=== PATIENT | female | born 1985 | race Caucasian/White ===

== ENCOUNTER 2016-09-12 16:08 | Emergency (ER) | payer OTHER ==
[2016-09-12 16:21] VITALS: BMI 36.2
--- NOTE | 2016-09-12 16:48 | PDOC ---
History of Present Illness - History of Present Illness Initial Comments: 09/12/16 17:02 The patient is a 31 year old female with no significant past medical hx who presents to the ED complaining of vaginal bleeding since today. She reports she went to the bathroom and noticed blood in her urine. She then noticed blood on the tissue when she wiped. The patient reports her LMP was 08/01. The patient reports she goes to [facility] and saw an HEAD OF ETHICS AND COMPLIANCE for this . The patient denies a copious amount of blood. The patient denies fever, chills, dysuria The patient denies nausea, vomiting, diarrhea, abdominal pain or cramping Surgical hx: None Allergies: NKDA <Ria Ramirez - Last Filed: 09/12/16 19:47> <Rochelle Curry - Last Filed: 09/12/16 20:06> - General Chief Complaint: Vaginal Bleeding Stated Complaint: 6WKS/VAGINAL BLEEDING Time Seen by Provider: 09/12/16 16:37 Past History <Ria Ramirez - Last Filed: 09/12/16 19:47> - Past Medical History Other medical history: denies - Psycho/Social/Smoking Cessation Hx Anxiety: No Suicidal Ideation: No Smoking History: Never smoked Have you smoked in the past 12 months: No Information on smoking cessation initiated: No Hx Alcohol Use: No Drug/Substance Use Hx: No Substance Use Type: None <Rochelle Curry - Last Filed: 09/12/16 20:06> - Past Medical History Allergies/Adverse Reactions: Allergies Allergy/AdvReac Type Severity Reaction Status Date / Time No Known Allergies Allergy Verified 09/12/16 16:18 Home Medications: Ambulatory Orders Cephalexin Monohydrate [Keflex -] 500 mg PO Q6H #20 capsule 09/12/16 Vits #93/Iron Fum/FA [ Formula Tablet] 1 each PO DAILY Review of Systems - Review of Systems Able to Perform ROS?: Yes Comments:: 09/12/16 17:02 CONSTITUTIONAL: Absent: fever, chills, diaphoresis, generalized weakness, malaise, loss of appetite HEENT: Absent: rhinorrhea, nasal congestion, throat pain, throat swelling, difficulty swallowing, mouth swelling, ear pain, eye pain, visual Changes CARDIOVASCULAR: Absent: chest pain, syncope, palpitations, irregular heart rate, lightheadedness , peripheral edema RESPIRATORY: Absent: cough, shortness of breath, dyspnea with exertion, orthopnea, wheezing, stridor, hemoptysis GASTROINTESTINAL: Absent: abdominal pain, abdominal distension, nausea, vomiting, diarrhea, constipation, melena, hematochezia GENITOURINARY: +Vaginal bleeding. Absent: dysuria, frequency, urgency, hesitancy, hematuria, flank pain, genital pain MUSCULOSKELETAL: Absent: myalgia, arthralgia, joint swelling SKIN: Absent: rash, itching, pallor NEUROLOGIC: Absent: headache, focal weakness or paresthesias, dizziness, unsteady gait, seizure, mental status changes, bladder or bowel incontinence PSYCHIATRIC: Absent: anxiety, depression, suicidal or homicidal ideation, hallucinations. <Ria Ramirez - Last Filed: 09/12/16 19:47> *Physical Exam - Vital Signs Last Vital Signs Temp Pulse Resp BP Pulse Ox 98.5 F 69 20 134/73 100 09/12/16 16:19 09/12/16 16:19 09/12/16 16:19 09/12/16 16:19 09/12/16 16:19 - Physical Exam Comments: 09/12/16 17:03 GENERAL: Well developed, well nourished. Awake and alert. No acute distress. HEENT: Normocephalic, atraumatic. PERRLA, EOMI. No conjunctival pallor. Sclera are non- icteric. Moist mucous membranes. Oropharynx is clear. NECK: Supple. Full ROM. No JVD. Carotid pulses 2+ and symmetric, without bruits. No thyromegaly. No lymphadenopathy. CARDIOVASCULAR: Regular rate and rhythm. No murmurs, rubs, or gallops. Distal pulses are 2+ and symmetric. PULMONARY: No evidence of respiratory distress. Lungs clear to auscultation bilaterally. No wheezing, rales or rhonchi. ABDOMINAL: Soft. Non-tender. Non-distended. No rebound or guarding. No organomegaly. Normoactive bowel sounds. MUSCULOSKELETAL Normal range of motion at all joints. No bony deformities or tenderness. No CVA tenderness. EXTREMITIES: No cyanosis. No clubbing. No edema. No calf tenderness. SKIN: Warm and dry. Normal capillary refill. No rashes. No jaundice. NEUROLOGICAL: Alert, awake, appropriate. Cranial nerves 2-12 intact. No deficits to light touch and temperature in face, upper extremities and lower extremities. PSYCHIATRIC: Cooperative. Good eye contact. Appropriate mood and affect. <Ria Ramirez - Last Filed: 09/12/16 19:47> - Vital Signs Last Vital Signs Temp Pulse Resp BP Pulse Ox 98.5 F 69 20 134/73 100 09/12/16 16:19 09/12/16 16:19 09/12/16 16:19 09/12/16 16:19 09/12/16 16:19 <Rochelle Curry - Last Filed: 09/12/16 20:06> ED Treatment Course - LABORATORY CBC & Chemistry Diagram: 09/12/16 17:00 - RADIOLOGY Radiograph Interpretation: 09/12/16 19:47 EXAM: Ultrasound pelvis transabdominal and transvaginal IMAGES: 44 EXAM DATE AND TIME: 2016-09-12 18:01:24.0 REASON FOR EXAM: Threatened COMPARISON: None. FINDINGS: There is an intrauterine gestational sac containing a yolk sac with no pole visualized. Approximate age of 5 weeks , 4 days by mean sac diameter of 0.99 cm. The sac is located in the lower uterine segment and is concerning for in progress. Normal left ovary containing several small follicles with flow demonstrated on Doppler evaluation. Right ovary not visualized No adnexal masses Trace fluid in the posterior cul-de-sac THIS DOCUMENT HAS BEEN ELECTRONICALLY SIGNED Bautista Glynn MD 09/12/2016 19:39 EST M.D. Please call [facility] [employer] Consultant [phone] ([phone]) with questions. <Ria Ramirez - Last Filed: 09/12/16 19:47> - LABORATORY CBC & Chemistry Diagram: 09/12/16 17:00 <Rochelle Curry - Last Filed: 09/12/16 20:06> *DC/Admit/Observation/Transfer - Attestations Scribe Attestion: 09/12/16 17:02 Documentation prepared by Ria Ramirez, acting as manager medical affairs for Rohcelle Curry MD/DO. <Ria Ramirez - Last Filed: 09/12/16 19:47> <Rochelle Curry - Last Filed: 09/12/16 20:06> Diagnosis at time of Disposition: Threatened UTI (urinary tract infection) Qualifiers: Urinary tract infection type: site unspecified Hematuria presence: without hematuria Qualified Code(s): N39.0 - Urinary tract infection, site not specified - Discharge Dispostion Disposition: HOME Condition at time of disposition: Stable - Prescriptions Prescriptions: Cephalexin Monohydrate [Keflex -] 500 mg PO Q6H #20 capsule - Patient Instructions Printed Discharge Instructions: DI for Threatened , DI for Urinary Tract Infection (UTI) Additional Instructions: PLEASE KEEP YOUR APPOINTMENT WITH YOUR HEAD OF ETHICS AND COMPLIANCE TOMORROW
[2016-09-12 17:14] LABS: BASOPHIL 0.5 % (0-2.0); EOSINOPHIL 0.8 % (0-4.5); MCHC 32.7 g/dl (32.0-36.0); MEAN CELL VOLUME 79.4 fl (80-96); MEAN PLT VOLUME 7.7 fl (7.5-11.1); NEUTROPHILS 68.8 % (42.8-82.8); PLATELET COUNT 419 K/MM3 (134-434); RDW 13.7 % (11.6-15.6); WHITE BLOOD COUNT 12.9 K/mm3 (4.0-10.0)
[2016-09-12 18:15] LABS: PH,URINE 5.5 (5.0-8.0); URINE APPEARANCE SL CLOUDY; URINE BILIRUBIN 1+ (NEGATIVE); URINE COLOR YELLOW; URINE GLUCOSE (UA) NEGATIVE (NEGATIVE); URINE KETONE NEGATIVE (NEGATIVE); URINE LEUK ESTERASE NEGATIVE (NEGATIVE); URINE PROTEIN NEGATIVE (NEGATIVE); URINE UROBILINOGEN 0.2 E.U/dl E.U./dl (0.2-1.0)
[2016-09-12 18:38] LABS: URINE BLOOD 2+ (NEGATIVE); URINE NITRITE POSITIVE (NEGATIVE)
[2016-09-12 18:41] LABS: URINE BACTERIA FEW /hpf (NONE SEEN); URINE RBC 50-60 /hpf (0-3); URINE WBC 0-3 /hpf (3-5)
[2016-09-12] MEDS ORDERED: CEPHALEXIN MONOHYDRATE 500 MG CAPSULE (UD) PO ONE (20:05)
[2016-09-12] MEDS ORDERED: CEPHALEXIN MONOHYDRATE 250 MG CAPSULE (FP) ONE (20:19)
[2016-09-12 20:24] VITALS: BP 132/74; PULSE 71; TEMP 97.2
== END 2016-09-12 20:24 | disposition home or self-care (01) ==
LOC: JER 16:08
DX: O20.0 Threatened abortion (principal); O23.31 Infections of other parts of urinary tract in pregnancy, first trimester; Z3A.01 Less than 8 weeks gestation of pregnancy
CPT/HCPCS: 36415; 76817-TC; 81003; 81015; 84702; 85025; 86850; 86900; 86901; 99282-25

== ENCOUNTER 2017-08-16 10:20 | Inpatient (IN) | payer OTHER ==
[2017-08-16] MEDS: ELECTROLYTE-148 SOLN 1,000 ML IV SCH ×2 (10:45→14:30)
[2017-08-16] MEDS ORDERED: AMPICILLIN - 2 GM in SODIUM CHLORIDE 100 ML IVPB ONE (11:00)
[2017-08-16 11:40] VITALS: BMI 17.7
[2017-08-16 11:52] LABS: BASO % 0.3 % (0-2.0); EOS % 0.8 % (0-4.5); HEMATOCRIT 35.9 % (32.4-45.2); HEMOGLOBIN 11.8 GM/dL (10.7-15.3); LYMPH % 13.4 % (8-40); MCH 26.4 pg (25.7-33.7); MCHC 32.9 g/dl (32.0-36.0); MEAN CELL VOLUME 80.1 fl (80-96); MEAN PLT VOLUME 7.8 fl (7.5-11.1); MONO % 5.5 % (3.8-10.2); PLATELET COUNT 354 K/MM3 (134-434); RBC 4.48 M/mm3 (3.60-5.2); RDW 14.9 % (11.6-15.6); WHITE BLOOD COUNT 14.1 K/mm3 (4.0-10.0)
[2017-08-16] MEDS ORDERED: AMPICILLIN SODIUM 2 GM VIAL ONE (11:58)
[2017-08-16 12:11] LABS: ANION GAP 9 (8-16); BLOOD UREA NITROGEN 9 mg/dL (7-18); CALCIUM 8.3 mg/dL (8.5-10.1); CHLORIDE 108 mmol/L (98-107); CO2 20 mmol/L (21-32); CREATININE 0.4 mg/dL (0.55-1.02); GLUCOSE,RANDOM 97 mg/dL (74-106); POTASSIUM 4.2 mmol/L (3.5-5.1); SODIUM 137 mmol/L (136-145)
[2017-08-16 12:16] LABS: INR 0.97 (0.82-1.09)
[2017-08-16 12:19] LABS: ACTIVATED PTT 26.1 SECONDS (26.9-34.4)
[2017-08-16] MEDS ORDERED: CITRIC ACID/SODIUM CITRATE 30 ML UNIT-DOSE CUP PO ONE (13:18)
[2017-08-16] MEDS ORDERED: ELECTROLYTE-148 SOLN 500 ML IV ONE (13:18)
--- NOTE | 2017-08-16 13:26 | HP ---
Past Medical History - Admission Chief Complaint: Rupture of membrane History of Present Illness: 32 yo , @ 40.3 weeks gestation, EDC 08/13/17, brought by ambulance due to leakage of green fluid. Upon admission there was evidence of thick meconium and cervix was was closed. Decision was made to deliver by instead of placing cervidil for 12 hours. History Source: Patient Limitations to Obtaining History: No Limitations - Past Medical History ...: 2 ...Para: 0 ...Term: 0 ...: 0 ...Spon : 1 ...Induced : 0 ...Multiple Gestation: 0 ...EDC by [facility]: 08/13/17 - Past Surgical History Past Surgical History: Yes: None Hx Myomectomy: No Hx Transabdominal Cerclage: No - Smoking History Smoking history: Never smoked Have you smoked in the past 12 months: No - Alcohol/Substance Use Hx Alcohol Use: No History of Substance Use: reports: None - Social History Usual Living Arrangement: Yes: With Spouse History of Recent Travel: No Home Medications - Allergies Allergies/Adverse Reactions: Allergies Allergy/AdvReac Type Severity Reaction Status Date / Time No Known Allergies Allergy Verified 09/12/16 16:18 - Home Medications Home Medications: Ambulatory Orders Cephalexin Monohydrate [Keflex -] 500 mg PO Q6H #20 capsule 09/12/16 Vit 93/Iron Fum/Folic [ Formula Tablet] 1 each PO DAILY Family Disease History - Family Disease History Family History: Unremarkable Review of Systems - Review of Systems Constitutional: reports: No Symptoms Eyes: reports: No Symptoms HENT: reports: No Symptoms Neck: reports: No Symptoms Cardiovascular: reports: No Symptoms Respiratory: reports: No Symptoms Gastrointestinal: reports: No Symptoms Genitourinary: reports: Other (Leakage of fluid) Musculoskeletal: reports: No Symptoms Integumentary: reports: No Symptoms Neurological: reports: No Symptoms Endocrine: reports: No Symptoms Hematology/Lymphatic: reports: No Symptoms Psychiatric: reports: No Symptoms Pain Intensity: 2 Physical Exam - Maternity Vital Signs: Vital Signs Temperature 98.3 F 08/16/17 12:00 Pulse Rate 72 08/16/17 12:00 Respiratory Rate 18 08/16/17 12:00 Blood Pressure 134/87 08/16/17 12:00 O2 Sat by Pulse Oximetry (%) Constitutional: Yes: Well Nourished Eyes: Yes: Conjunctiva Clear HENT: Yes: Atraumatic Neck: Yes: Supple Cardiovascular: Yes: Regular Rate and Rhythm Lungs: Clear to auscultation - Abdominal Exam/OB Number of Fetuses: Single Presentation: Vertex - Vaginal Exam/OB Vaginal Bleediing: No Dilatation (cm): 1 Effacement (%): 50 Amniotic Membrane Status: Ruptured Amniotic Fluid: Yes: Meconium Stained Meconium: Thick Station: -3 - Physical Exam ...Motor Strength: WNL Psychiatric: Yes: Alert, Oriented - Labs Lab Results: CBC, BMP 08/16/17 11:25 08/16/17 11:25 Problem List - Problems (1) Post-dates Code(s): O48.0 - POST-TERM Assessment/Plan Postdates SROM Meconium stained Pre op for Consent signed Anesthesia to see patient
[2017-08-16] MEDS ORDERED: TUBERCULIN PPD 5 TU/0.1ML SYRINGE (IN PATIENT USE ONLY) ID ONE (13:30)
[2017-08-16] MEDS ORDERED: OXYTOCIN 20 UNITS in 0.9% NS 20 UNIT/1,000 ML INFUS.BAG IV ONE ×2 (14:27→17:32)
[2017-08-16] MEDS ORDERED: morphine SULFATE/Preservative Free 0.5 MG/ML (1cc Syringe) ONE (14:31)
[2017-08-16] MEDS ORDERED: BUPIVACAINE 0.75% IN DEXTROSE/PF 2ML AMPULE NR ONE (14:50)
[2017-08-16] MEDS ORDERED: AMPICILLIN - 1 GM in SODIUM CHLORIDE 100 ML IVPB SCH (15:00)
[2017-08-16] MEDS ORDERED: SUCCINYLCHOLINE CHLORIDE 200 MG/10 ML VIAL ONE (15:05)
[2017-08-16] MEDS ORDERED: ONDANSETRON 4 MG/2 ML VIAL IVPUSH PRN (16:27)
[2017-08-16] MEDS ORDERED: morphine SULFATE/Preservative Free 0.5 MG/ML (1cc Syringe) SPIN ONE (16:30)
[2017-08-16] MEDS ORDERED: ONDANSETRON 4 MG/2 ML VIAL ONE (17:32)
[2017-08-16] MEDS ORDERED: IBUPROFEN 800 MG/8 ML IJ IVPB PRN (18:04)
[2017-08-16] MEDS ORDERED: METHYLERGONOVINE MALEATE 0.2 MG/1 ML AMP IM PRN (18:04)
--- NOTE | 2017-08-16 18:09 | OP ---
Operative Note - Note: Operative Date: 08/16/17 Pre-Operative Diagnosis: Postdates / SROM / Meconium Operation: Primary Low transverse / Right ovarian cystectomy Findings: Baby in vertex position / Right dermoid cyst Post-Operative Diagnosis: Other (Postdates / SROM / Meconium / Right dermoid cyst) Surgeon: Pura Maguire Orthopedic Physician Assistant: Ave Rees Anesthesia: Spinal Specimens Removed: Placenta / Ovarian cyst Estimated Blood Loss (mls): 600
[2017-08-16] MEDS ORDERED: OXYTOCIN 20 UNITS in 0.9% NS 20 UNIT/1,000 ML INFUS.BAG IV SCH (18:15)
[2017-08-16] MEDS ORDERED: IBUPROFEN 800 MG/8 ML IJ IVPB ONE (19:25)
--- NOTE | 2017-08-17 07:18 | PN ---
Progress Note (SOAP) - Subjective Chief Complaint: Pt doing well Seen and [id number] - Current Medications Current Medications: Active Medications Bisacodyl (Dulcolax Suppository -) 10 mg RC PRN PRN PRN Reason: CONSTIPATION Diphenhydramine HCl (Benadryl Injection -) 25 mg IVPUSH Q4H PRN PRN Reason: Pruritis Last Admin: 08/17/17 04:45 Dose: 25 mg Diphtheria/Tetanus/Acell Pertussis (Boostrix -) 0.5 ml IM .ONCE ONE Stop: 08/17/17 10:01 Oxytocin/Sodium Chloride (Normal Saline+20 Units Oxytocin -) 20 unit in 1,000 mls @ 125 mls/hr IV ASDIR RALEIGH Last Admin: 08/16/17 17:45 Dose: 125 mls/hr Ibuprofen (Motrin -) 600 mg PO Q4H PRN PRN Reason: PAIN LEVEL 1 - 3 Ibuprofen (Caldolor Injection -) 800 mg IVPB Q8H PRN PRN Reason: PAIN Last Admin: 08/16/17 19:30 Dose: 800 mg Influenza Virus Vaccine Quadrival (Fluarix Quad [id number] Syringe) 60 mcg IM .ONCE ONE Stop: 08/17/17 10:01 Methylergonovine Maleate (Methergine Injection -) 0.2 mg IM Q4H PRN PRN Reason: Excessive Bleeding (L&D) Ondansetron HCl (Zofran Injection) 4 mg IVPUSH Q4H PRN PRN Reason: NAUSEA Last Admin: 08/16/17 17:40 Dose: 4 mg Oxycodone HCl (Roxicodone -) 5 mg PO Q4H PRN PRN Reason: PAIN LEVEL 4 - 6 Simethicone (Mylicon -) 80 mg PO Q4H PRN PRN Reason: GAS - Objective Vital Signs: Vital Signs Temperature 99.3 F 08/17/17 05:48 Pulse Rate 79 08/17/17 05:48 Respiratory Rate 20 08/17/17 05:48 Blood Pressure 127/53 08/17/17 05:48 O2 Sat by Pulse Oximetry (%) 100 08/16/17 19:55 Constitutional: Yes: Well Nourished, No Distress Respiratory: Yes: WNL Gastrointestinal: Yes: WNL, Normal Bowel Sounds, Soft ....Post : Yes: Uterus firm, Uterus non-tender Breast(s): Yes: WNL Musculoskeletal: Yes: WNL Extremities: Yes: WNL Edema: No Wound/Incision: Yes: Clean/Dry, Well Approximated Labs Lab Results: CBC, BMP 08/16/17 11:25 08/16/17 11:25 Problem List - Problems (1) Status post primary low transverse section Code(s): Z98.891 - HISTORY OF UTERINE SCAR FROM PREVIOUS SURGERY Assessment/Plan SP CS POD1 Plan Continue present management OOB
[2017-08-17 09:06] LABS: BASO % 0.2 % (0-2.0); EOS % 0.6 % (0-4.5); HEMATOCRIT 33.7 % (32.4-45.2); HEMOGLOBIN 11.2 GM/dL (10.7-15.3); LYMPH % 14.5 % (8-40); MCH 26.5 pg (25.7-33.7); MCHC 33.1 g/dl (32.0-36.0); MEAN PLT VOLUME 7.9 fl (7.5-11.1); MONO % 7.3 % (3.8-10.2); NEUT % 77.4 % (42.8-82.8); PLATELET COUNT 338 K/MM3 (134-434); RBC 4.21 M/mm3 (3.60-5.2); WHITE BLOOD COUNT 14.4 K/mm3 (4.0-10.0)
[2017-08-17] MEDS ORDERED: DIPHTH,PERTUSS(ACELL),TET 0.5 ML DISP.SYRIN IM ONE (10:00)
[2017-08-17] MEDS ORDERED: FLU VACC QS2017-18 36MOS UP/PF 60 MCG/0.5 ML SYRINGE IM ONE (10:00)
--- NOTE | 2017-08-17 13:38 | PN ---
Progress Note (short form) - Note Progress Note: Anesthesiology Post-op POD#1 s/p C/S under spinal. Pt. doing well, denies h/a. She is able to move legs without difficulty. VSS. 32 y.o. s/p C/S with stable post-operative course. Continue management as per primary team.
[2017-08-17] MEDS ORDERED: BISACODYL 10 MG SUPP.RECT RC PRN (18:04)
[2017-08-17] MEDS: IBUPROFEN 600 MG TABLET (FP) PO PRN (21:05)
[2017-08-17] MEDS: SIMETHICONE 80 MG TAB.CHEW (FP) PO PRN (21:05)
[2017-08-17] MEDS: oxyCODONE HCL 5 MG TABLET PO PRN (21:06)
[2017-08-18] MEDS: SIMETHICONE 80 MG TAB.CHEW (FP) PO PRN ×3 (04:26→20:00)
[2017-08-18] MEDS: IBUPROFEN 600 MG TABLET (FP) PO PRN ×3 (04:34→20:00)
[2017-08-18] MEDS: oxyCODONE HCL 5 MG TABLET PO PRN ×3 (04:34→20:01)
--- NOTE | 2017-08-18 05:01 | PN ---
Post Progress Note - Subjective Subjective: 32 yo Para 1 status post primary and ovarian cystectomy, seen and evaluated. She c/o incision pain and abdominal distention. She's ambulating. Post Day: 2 Type of Delivery: Primary C/S Vital Signs: Vital Signs Temperature 98.5 F 08/17/17 21:10 Pulse Rate 88 08/17/17 21:10 Respiratory Rate 20 08/17/17 21:10 Blood Pressure 133/74 08/17/17 21:10 O2 Sat by Pulse Oximetry (%) 100 08/16/17 19:55 Breast Exam: Yes: Soft Uterus: Yes: Fundus @ umbilicus Incision: Yes: Dressing dry and intact Abdomen/GI: Yes: Abdominal Distention, Tender. No: Passing flatus Lochia: Yes: Rubra Lochia, amount: Small Extremities: Yes: Calves non-tender Perineum: Yes: Intact Activity: Ambulating - Labs Labs: CBC WBC 14.4 K/mm3 (4.0-10.0) H 08/17/17 08:00 RBC 4.21 M/mm3 (3.60-5.2) 08/17/17 08:00 Hgb 11.2 GM/dL (10.7-15.3) 08/17/17 08:00 Hct 33.7 % (32.4-45.2) 08/17/17 08:00 MCV 80.0 fl (80-96) 08/17/17 08:00 MCH 26.5 pg (25.7-33.7) 08/17/17 08:00 MCHC 33.1 g/dl (32.0-36.0) 08/17/17 08:00 RDW 15.0 % (11.6-15.6) 08/17/17 08:00 Plt Count 338 K/MM3 (134-434) 08/17/17 08:00 MPV 7.9 fl (7.5-11.1) 08/17/17 08:00 Neutrophils % 77.4 % (42.8-82.8) 08/17/17 08:00 Lymphocytes % 14.5 % (8-40) 08/17/17 08:00 Monocytes % 7.3 % (3.8-10.2) 08/17/17 08:00 Eosinophils % 0.6 % (0-4.5) 08/17/17 08:00 Basophils % 0.2 % (0-2.0) 08/17/17 08:00 Problem List - Problems (1) Post-dates Code(s): O48.0 - POST-TERM (2) Status post primary low transverse section Code(s): Z98.891 - HISTORY OF UTERINE SCAR FROM PREVIOUS SURGERY Assessment/Plan Status post primary Abdominal distention Continue ambulation Simethicone Analgesia as needed Continue post op care
--- NOTE | 2017-08-18 05:05 | DS ---
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 Vital Signs: Vital Signs Temperature 98.5 F 08/17/17 21:10 Pulse Rate 88 08/17/17 21:10 Respiratory Rate 20 08/17/17 21:10 Blood Pressure 133/74 08/17/17 21:10 O2 Sat by Pulse Oximetry (%) 100 08/16/17 19:55 Constitutional: Yes: Well Nourished Eyes: Yes: Conjunctiva Clear HENT: Yes: Atraumatic Neck: Yes: Supple Cardiovascular: Yes: Regular Rate and Rhythm Respiratory: Yes: Regular Gastrointestinal: Yes: Normal Bowel Sounds Vaginal Exam: Yes: Normal Cervix: Yes: Normal Uterus: Yes: Firm Wound/Incision: Yes: Clean/Dry, Steri Strips (in place) Neurological: Yes: Alert, Oriented ...Motor Strength: WNL Psychiatric: Yes: Alert, Oriented Labs: CBC, BMP 08/17/17 08:00 08/16/17 11:25 Delivery - Delivery Type of Anesthesia: Spinal Episiotomy/Laceration: None EBL (cc): 500 Delivery, Single - Stages of Labor Date 1st Stage Initiatied: 08/16/17 Time 1st Stage Initiated: 10:00 Date of Delivery: 08/16/17 Time of Delivery: 15:11 Time Placenta Delivered: 15:12 - 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 No blood transfusion nor additional dosage of antibiotic required. Condition: Good - Instructions Diet, Activity, Other Instructions: Regular diet No driving, no lifting x 4 weeks F/U with MD in 1 week Disposition: HOME - Home Medications Comprehensive Discharge Medication List: Ambulatory Orders Vit 93/Iron Fum/Folic [ Formula Tablet] 1 each PO DAILY Ferrous Sulfate [Feosol] 325 mg PO DAILY 08/16/17
[2017-08-19] MEDS: SIMETHICONE 80 MG TAB.CHEW (FP) PO PRN ×2 (08:26→20:33)
[2017-08-19] MEDS: oxyCODONE HCL 5 MG TABLET PO PRN (08:27)
[2017-08-19] MEDS: IBUPROFEN 600 MG TABLET (FP) PO PRN ×2 (08:27→20:33)
[2017-08-19 08:36] LABS: BASO % 0.5 % (0-2.0); EOS % 2.8 % (0-4.5); HEMATOCRIT 33.2 % (32.4-45.2); HEMOGLOBIN 10.9 GM/dL (10.7-15.3); MCH 26.4 pg (25.7-33.7); MCHC 32.7 g/dl (32.0-36.0); MEAN CELL VOLUME 80.7 fl (80-96); MEAN PLT VOLUME 7.6 fl (7.5-11.1); NEUT % 72.7 % (42.8-82.8); PLATELET COUNT 395 K/MM3 (134-434); RBC 4.12 M/mm3 (3.60-5.2); RDW 15.1 % (11.6-15.6)
--- NOTE | 2017-08-19 15:37 | PATH ---
Surgical Pathology Report Patient Name: LIZ ALMEIDA [facility]. Rec. 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 Specimen(s) Received A: PLACENTA B: DERMOID CYST Clinical History , 40.3 wks Final Diagnosis A. PLACENTA, DELIVERY: FOCALLY DISRUPTED THIRD TRIMESTER PLACENTA WITH SUBCHORIONIC FIBRIN DEPOSITION, 3 VESSEL UMBILICAL CORD, AND MECONIUM HISTIOCYTOSIS OF MEMBRANES. B. OVARIAN CYST, EXCISION: MATURE CYSTIC TERATOMA. Electronically Signed Dangelo Tinoco M.D. Gross Description A. The specimen is received fresh labeled placenta and is a 605 gram, 18 x 16 x 1.3 cm. placenta with attached membranes and umbilical cord. The attached membranes are lisa lundy with slight yellow tinge and insert marginally. The umbilical cord measures 50 cm. in length and averages 1.5 cm. in diameter. The cord inserts eccentrically, 4 cm. to the nearest margin. Focal area of hemorrhage is identified within the umbilical cord measuring 3.5 cm in length at the distal end. No true knots or strictures are identified. Cut surface of the umbilical cord reveals 3 vessels. The surface is lisa-blue with minimal fibrin deposition and appropriate caliber vessels. The maternal surface is red-brown with focal defects. Sectioning reveals red-brown, spongy parenchyma. No lesions are identified. [employer] Head sections are submitted in three cassettes as follows: 1- membrane rolls and umbilical cord; 2-3- full thickness sections of placenta. B. The specimen is received fresh labeled "dermoid cyst" and is a 82 g, 7 x 6 x 2 cm, pink-lundy cystic mass with smooth outer surface. On sectioning, the cyst contains abundant sebaceous material admixed with hair. The cyst wall measures 0.1 cm in thickness. Within the wall is a focal area of adherent yellow adipose tissue measuring 4 x 3 cm. [employer] Head sections are submitted in two cassettes. [email or web address]/08/18/2017
--- NOTE | 2017-08-20 07:22 | PN ---
Progress Note (SOAP) - Subjective Chief Complaint: Pt doing well Pt has pain on right side where cyst is Seen and evaluated - Current Medications Current Medications: Active Medications Bisacodyl (Dulcolax Suppository -) 10 mg RC PRN PRN PRN Reason: CONSTIPATION Last Admin: 08/18/17 04:26 Dose: 10 mg Ibuprofen (Motrin -) 600 mg PO Q4H PRN PRN Reason: PAIN LEVEL 1 - 3 Last Admin: 08/19/17 20:33 Dose: 600 mg Methylergonovine Maleate (Methergine Injection -) 0.2 mg IM Q4H PRN PRN Reason: Excessive Bleeding (L&D) Simethicone (Mylicon -) 80 mg PO Q4H PRN PRN Reason: GAS Last Admin: 08/19/17 20:33 Dose: 80 mg - Objective Vital Signs: Vital Signs Temperature 98.2 F 08/19/17 22:00 Pulse Rate 74 08/19/17 22:00 Respiratory Rate 20 08/19/17 22:00 Blood Pressure 119/67 08/19/17 22:00 O2 Sat by Pulse Oximetry (%) 100 08/16/17 19:55 Constitutional: Yes: Well Nourished, No Distress Gastrointestinal: Yes: WNL, Soft, Abdomen, Obese ....Post : Yes: Uterus firm, Uterus non-tender Breast(s): Yes: WNL Musculoskeletal: Yes: WNL Edema: No Wound/Incision: Yes: Clean/Dry, Well Approximated, Steri Strips Labs Lab Results: CBC, BMP 08/19/17 06:40 08/16/17 11:25 Problem List - Problems (1) Status post primary low transverse section Code(s): Z98.891 - HISTORY OF UTERINE SCAR FROM PREVIOUS SURGERY Assessment/Plan SP CS POD4 Plan DC home RTO 1 week
[2017-08-20] MEDS: SIMETHICONE 80 MG TAB.CHEW (FP) PO PRN (08:06)
[2017-08-20] MEDS: IBUPROFEN 600 MG TABLET (FP) PO PRN (08:06)
[2017-08-20 09:22] VITALS: BP 116/65; PULSE 86; TEMP 98.4
== END 2017-08-20 12:46 | disposition home or self-care (01) | DRG 540 ==
LOC: JLDR 10:20 → J3W 20:30
PROVIDERS: ADMIT Obstetrics & Gynecology; ATTEND Obstetrics & Gynecology
PROC: 10D00Z1 Extraction of Products of Conception, Low, Open Approach (ICD-10-PCS; principal; 2017-08-16)
PROC: 0UB00ZZ Excision of Right Ovary, Open Approach (ICD-10-PCS; 2017-08-16)
DX: O48.0 Post-term pregnancy (principal); O77.0 Labor and delivery complicated by meconium in amniotic fluid; O34.83 Maternal care for other abnormalities of pelvic organs, third trimester; D27.0 Benign neoplasm of right ovary; Z3A.40 40 weeks gestation of pregnancy; Z37.0 Single live birth
CPT/HCPCS: 36415; 80048; 85025; 85610; 85730; 86593; 86850; 86900; 86901; 88307-TC; 90686; 90715; G0008

== ENCOUNTER 2020-10-19 11:29 | Emergency (ER) | payer OTHER ==
[2020-10-19 11:34] VITALS: BP 127/79; PULSE 76; TEMP 97.5; BMI 34.0
[2020-10-19 12:28] LABS: BASO % 0.4 % (0-2.0); EOS % 0.7 % (0-4.5); HEMATOCRIT 36.1 % (32.4-45.2); HEMOGLOBIN 12.3 GM/dL (10.7-15.3); LYMPH % 17.7 % (8-40); MCH 27.6 pg (25.7-33.7); MEAN CELL VOLUME 81.3 fl (80-96); MEAN PLT VOLUME 7.7 fl (7.5-11.1); MONO % 4.3 % (3.8-10.2); NEUT % 76.9 % (42.8-82.8); PLATELET COUNT 420 K/MM3 (134-434); RBC 4.44 M/mm3 (3.60-5.2); RDW 14.5 % (11.6-15.6); WHITE BLOOD COUNT 15.1 K/mm3 (4.0-10.0)
[2020-10-19 12:32] LABS: EPI CELLS 26 /uL (0-25.1); HYALINE CASTS 5 /uL (0-3.1); URINE APPEARANCE CLEAR; URINE BACTERIA 59 /uL (0-1359); URINE BILIRUBIN NEGATIVE (NEGATIVE); URINE COLOR YELLOW; URINE GLUCOSE (UA) NEGATIVE (NEGATIVE); URINE KETONE NEGATIVE (NEGATIVE); URINE LEUK ESTERASE NEGATIVE (NEGATIVE); URINE NITRITE NEGATIVE (NEGATIVE); URINE PROTEIN 2+ (NEGATIVE); URINE RBC 11 /uL (0-23.9); URINE WBC 9 /uL (0-25.8)
== END 2020-10-19 13:40 | disposition home or self-care (01) ==
LOC: JER 11:29
DX: O20.9 Hemorrhage in early pregnancy, unspecified (principal); B37.3 Candidiasis of vulva and vagina; Z3A.10 10 weeks gestation of pregnancy
CPT/HCPCS: 36415; 76801-TC; 81003; 84702; 85025; 87070; 87086; 87205; 87491; 87591; 87661; 99284-25

== ENCOUNTER 2021-05-23 08:15 | Inpatient (IN) | payer OTHER ==
[2021-05-23] MEDS: DEXTROSE 5%-LACTATED RINGERS 1,000 ML IV SCH (08:30)
[2021-05-23] MEDS ORDERED: OXYTOCIN 30 UNITS in 0.9% NS 30 UNIT/500 ML INFUS.BAG IVPB ONE (09:23)
[2021-05-23 09:57] VITALS: BMI 37.0
[2021-05-23] MEDS ORDERED: OXYTOCIN 30 UNITS in 0.9% NS 30 UNIT/500 ML INFUS.BAG IVPB SCH (10:30)
[2021-05-23] MEDS ORDERED: BUTORPHANOL TARTRATE 1 MG/ML VIAL IVPB ONE (11:11)
[2021-05-23] MEDS ORDERED: PROMETHAZINE HCL 25 MG/1 ML VIAL IVPB ONE ×2 (11:11→15:06)
[2021-05-23] MEDS ORDERED: BUTORPHANOL TARTRATE 2 MG/ML VIAL ONE ×2 (11:18→14:06)
[2021-05-23] MEDS ORDERED: PROMETHAZINE HCL 25 MG/1 ML VIAL ONE ×2 (11:18→14:07)
[2021-05-23 11:31] LABS: BASO % 0.6 % (0-2.0); EOS % 0.7 % (0-4.5); HEMATOCRIT 38.2 % (32.4-45.2); HEMOGLOBIN 12.5 GM/dL (10.7-15.3); LYMPH % 19.4 % (8-40); MCH 27.4 pg (25.7-33.7); MCHC 32.7 g/dl (32.0-36.0); MEAN CELL VOLUME 83.7 fl (80-96); MEAN PLT VOLUME 8.4 fl (7.5-11.1); MONO % 6.4 % (3.8-10.2); NEUT % 72.9 % (42.8-82.8); PLATELET COUNT 320 10^3/uL (134-434); RBC 4.56 M/mm3 (3.60-5.2); RDW 14.5 % (11.6-15.6); WHITE BLOOD COUNT 10.8 K/mm3 (4.0-10.0)
[2021-05-23 11:36] LABS: INR 0.94 (0.83-1.09)
[2021-05-23 11:39] LABS: ACTIVATED PTT 25.1 SECONDS (25.2-36.5)
[2021-05-23 11:49] LABS: CALCIUM 8.7 mg/dL (8.5-10.1)
[2021-05-23 11:50] LABS: BLOOD UREA NITROGEN 6.6 mg/dL (7-18)
[2021-05-23 11:53] LABS: CREATININE 0.4 mg/dL (0.55-1.3)
[2021-05-23] MEDS ORDERED: BUTORPHANOL TARTRATE 2 MG/ML VIAL IVPB ONE (15:06)
[2021-05-23] MEDS ORDERED: SODIUM CHLORIDE 1,000 ML IV STA (19:07)
[2021-05-23] MEDS ORDERED: FENTANYL/BUPIVACAINE/NS/PF - PCEA - 50 ML DISP.SYRIN EP ONE ×2 (19:27→23:46)
[2021-05-23] MEDS ORDERED: PCA PUMP NR ONE (19:28)
[2021-05-23] MEDS ORDERED: NALOXONE HCL 0.4 MG/ML VIAL IVPUSH PRN (19:32)
[2021-05-23] MEDS ORDERED: FENTANYL/BUPIVACAINE/NS/PF - PCEA - 50 ML DISP.SYRIN EP SCH (19:45)
[2021-05-24] MEDS ORDERED: SODIUM CHLORIDE 500 ML IV STA (00:05)
[2021-05-24] MEDS ORDERED: LIDOCAINE HCL 1% PRESERVATIVE FREE - 30ML VIAL ONE (02:22)
[2021-05-24] MEDS ORDERED: OXYTOCIN 20 UNITS in 0.9% NS 20 UNIT/1,000 ML INFUS.BAG IV ONE ×2 (02:22→11:26)
[2021-05-24] MEDS ORDERED: FENTANYL/BUPIVACAINE/NS/PF - PCEA - 50 ML DISP.SYRIN EP ONE (02:40)
[2021-05-24] MEDS ORDERED: PROMETHAZINE HCL 25 MG/1 ML VIAL ONE (05:39)
[2021-05-24] MEDS ORDERED: BUTORPHANOL TARTRATE 2 MG/ML VIAL ONE (05:39)
[2021-05-24 06:09] LABS: CORD BASE EXCESS -25.8 mmol/L (0-2); CORD HCO3 12.1 mmHg (20-29); CORD PCO2 95.8 mmHg (30-78)
[2021-05-24 06:12] LABS: CORD pH 6.719 (7.14-7.44)
[2021-05-24] MEDS ORDERED: LIDOCAINE HCL/EPINEPHRINE/PF 20 ML VIAL ONE ×2 (09:38→11:24)
[2021-05-24] MEDS ORDERED: WITCH HAZEL 50% (TUCKS) 40 PAD/JAR PAD TP PRN (12:09)
[2021-05-24] MEDS ORDERED: METHYLERGONOVINE MALEATE 0.2 MG/1 ML AMP IM PRN (12:09)
[2021-05-24] MEDS ORDERED: BENZOCAINE 28 GM HEMORRHOIDAL OINTMENT TP PRN (12:09)
[2021-05-24] MEDS ORDERED: OXYTOCIN 20 UNITS in 0.9% NS 20 UNIT/1,000 ML INFUS.BAG IV SCH (12:15)
[2021-05-24] MEDS ORDERED: MIDAZOLAM HCL 2 MG/2 ML SINGLE DOSE VIAL ONE ×3 (12:51→23:03)
[2021-05-24] MEDS ORDERED: KETAMINE HCL 200 MG/20 ML VIAL ONE (13:12)
[2021-05-24] MEDS: oxyCODONE HCL 5 MG TABLET PO PRN (15:03)
[2021-05-24] MEDS: FERROUS SO4 325 MG TABLET (FP) PO SCH (16:41)
[2021-05-24] MEDS: ACETAMINOPHEN 325 MG TABLET (FP) PO PRN (17:47)
[2021-05-24 21:11] LABS: BASO % 0.2 % (0-2.0); EOS % 0.1 % (0-4.5); HEMATOCRIT 24.8 % (32.4-45.2); HEMOGLOBIN 8.1 GM/dL (10.7-15.3); LYMPH % 11.1 % (8-40); MCH 27.5 pg (25.7-33.7); MCHC 32.6 g/dl (32.0-36.0); MEAN CELL VOLUME 84.4 fl (80-96); MEAN PLT VOLUME 8.3 fl (7.5-11.1); MONO % 7.1 % (3.8-10.2); NEUT % 81.5 % (42.8-82.8); PLATELET COUNT 239 10^3/uL (134-434); RBC 2.94 M/mm3 (3.60-5.2); RDW 14.5 % (11.6-15.6)
[2021-05-24] MEDS ORDERED: SUCCINYLCHOLINE CHLORIDE 200 MG/10 ML SYRINGE ONE (23:02)
[2021-05-24] MEDS ORDERED: ROCURONIUM BROMIDE 50 MG/5 ML SYRINGE ONE (23:02)
[2021-05-24] MEDS ORDERED: PROPOFOL 20 ML ONE ×2 (23:02)
[2021-05-24] MEDS ORDERED: ETOMIDATE 20 MG/10 ML AMPUL IVPUSH ONE (23:03)
[2021-05-24] MEDS ORDERED: ONDANSETRON 4 MG/2 ML VIAL IVPUSH PRN (23:22)
[2021-05-25] MEDS ORDERED: ceFAZolin SODIUM 1 GM VIAL ONE (00:03)
[2021-05-25] MEDS ORDERED: ceFAZolin SODIUM 1 GM VIAL IVPB ONE (00:03)
[2021-05-25] MEDS ORDERED: DEXAMETHASONE SOD PHOSPHATE 4 MG/1 ML VIAL ONE (00:11)
[2021-05-25] MEDS ORDERED: GLYCOPYRROLATE 0.2 MG/1 ML VIAL ONE (00:48)
[2021-05-25] MEDS ORDERED: NEOSTIGMINE METHYLSULFATE 0.5 MG/ML - 10 ML MDV ONE (00:48)
[2021-05-25] MEDS ORDERED: ROCURONIUM BROMIDE 50 MG/5 ML SYRINGE ONE (01:48)
[2021-05-25] MEDS ORDERED: OXYTOCIN 10 UNITS/ML VIAL ONE (02:24)
[2021-05-25] MEDS: HYDROmorphone HCl 2 MG/ML VIAL ONE ×2 (04:33→04:43)
[2021-05-25] MEDS: DEXTROSE 5%-LACTATED RINGERS 1,000 ML IV SCH (04:36)
[2021-05-25] MEDS ORDERED: IRON SUCROSE INJECTION 300 MG in SODIUM CHLORIDE 235 ML IVPB ONE (06:00)
[2021-05-25] MEDS: FERROUS SO4 325 MG TABLET (FP) PO SCH ×3 (08:20→17:46)
[2021-05-25 10:57] LABS: BASO % 0.1 % (0-2.0); HEMATOCRIT 26.8 % (32.4-45.2); HEMOGLOBIN 8.6 GM/dL (10.7-15.3); LYMPH % 7.3 % (8-40); MCH 27.6 pg (25.7-33.7); MCHC 32.2 g/dl (32.0-36.0); MEAN CELL VOLUME 85.8 fl (80-96); MEAN PLT VOLUME 8.8 fl (7.5-11.1); MONO % 5.6 % (3.8-10.2); PLATELET COUNT 269 10^3/uL (134-434); RBC 3.12 M/mm3 (3.60-5.2); RDW 14.9 % (11.6-15.6); WHITE BLOOD COUNT 19.4 K/mm3 (4.0-10.0)
[2021-05-25] MEDS: IBUPROFEN 600 MG TABLET (FP) PO PRN ×3 (13:18→23:55)
[2021-05-26] MEDS: ACETAMINOPHEN 325 MG TABLET (FP) PO PRN (03:40)
[2021-05-26] MEDS: oxyCODONE HCL 5 MG TABLET PO PRN ×3 (04:49→17:43)
[2021-05-26] MEDS: FERROUS SO4 325 MG TABLET (FP) PO SCH ×3 (08:27→17:43)
[2021-05-26] MEDS: SIMETHICONE 80 MG TAB.CHEW (FP) PO PRN ×3 (12:06→22:17)
[2021-05-26] MEDS: IBUPROFEN 600 MG TABLET (FP) PO PRN ×2 (12:40→22:17)
[2021-05-26] MEDS: DOCUSATE SODIUM 100 MG CAPSULE (FP) PO PRN ×2 (13:14→22:17)
[2021-05-27] MEDS: SIMETHICONE 80 MG TAB.CHEW (FP) PO PRN ×4 (06:17→21:52)
[2021-05-27] MEDS: oxyCODONE HCL 5 MG TABLET PO PRN (06:17)
[2021-05-27] MEDS: FERROUS SO4 325 MG TABLET (FP) PO SCH ×3 (09:00→17:21)
[2021-05-27] MEDS: IBUPROFEN 600 MG TABLET (FP) PO PRN ×3 (10:18→21:52)
[2021-05-27] MEDS: DOCUSATE SODIUM 100 MG CAPSULE (FP) PO PRN ×2 (10:18→17:21)
[2021-05-28] MEDS: IBUPROFEN 600 MG TABLET (FP) PO PRN ×2 (06:16→10:57)
[2021-05-28] MEDS: FERROUS SO4 325 MG TABLET (FP) PO SCH ×2 (08:00→12:26)
[2021-05-28] MEDS: SIMETHICONE 80 MG TAB.CHEW (FP) PO PRN (09:57)
[2021-05-28] MEDS: DOCUSATE SODIUM 100 MG CAPSULE (FP) PO PRN (09:57)
[2021-05-28 10:30] VITALS: BP 130/77; PULSE 83; TEMP 98.3
== END 2021-05-28 13:55 | disposition home or self-care (01) | DRG 542 ==
LOC: JLDR 08:15 → J3W 05-24 14:45
PROVIDERS: ADMIT Obstetrics & Gynecology Maternal & Fetal Medicine; ATTEND Obstetrics & Gynecology Maternal & Fetal Medicine
PROC: 10D07Z6 Extraction of Products of Conception, Vacuum, Via Natural or Artificial Opening (ICD-10-PCS; principal; 2021-05-23)
PROC: 0KQM0ZZ Repair Perineum Muscle, Open Approach (ICD-10-PCS; 2021-05-23)
PROC: 0UJD0ZZ Inspection of Uterus and Cervix, Open Approach (ICD-10-PCS; 2021-05-25)
PROC: 0UQ90ZZ Repair Uterus, Open Approach (ICD-10-PCS; 2021-05-25)
DX: O34.211 Maternal care for low transverse scar from previous cesarean delivery (principal); O48.0 Post-term pregnancy; O22.43 Hemorrhoids in pregnancy, third trimester; O87.2 Hemorrhoids in the puerperium; O70.1 Second degree perineal laceration during delivery; O99.214 Obesity complicating childbirth; E66.01 Morbid (severe) obesity due to excess calories; O90.89 Other complications of the puerperium, not elsewhere classified; O71.81 Laceration of uterus, not elsewhere classified; Z3A.40 40 weeks gestation of pregnancy; Z37.1 Single stillbirth
CPT/HCPCS: 36415; 36600; 59409; 74177-TC; 80048; 82803; 85025; 85610; 85730; 86780; 86850; 86900; 86901; 86922; 88307-TC; 94760; C9803-CS; J1756; Q9967; U0003; U0005

== ENCOUNTER 2021-06-10 20:37 | Emergency (ER) | payer OTHER ==
[2021-06-10 21:18] VITALS: BP 107/68; PULSE 78; TEMP 98.7; BMI 32.2
[2021-06-10] MEDS ORDERED: ENOXAPARIN NA (PORCINE) 40 MG/0.4 ML DISP.SYRIN SQ ONE (21:33)
[2021-06-10] MEDS ORDERED: ENOXAPARIN NA (PORCINE) 100 MG/1 ML DISP.SYRIN SQ ONE (21:49)
== END 2021-06-10 22:05 | disposition home or self-care (01) ==
LOC: JERFT 20:37
DX: O22.30 Deep phlebothrombosis in pregnancy, unspecified trimester (principal)
CPT/HCPCS: 99283-25

== ENCOUNTER 2021-06-12 20:06 | Inpatient (IN) | payer OTHER ==
[2021-06-12 20:22] VITALS: BMI 32.5
[2021-06-12 22:54] LABS: BASO % 0.5 % (0-2.0); EOS % 1.9 % (0-4.5); HEMATOCRIT 27.5 % (32.4-45.2); HEMOGLOBIN 9.1 GM/dL (10.7-15.3); LYMPH % 23.6 % (8-40); MCH 26.9 pg (25.7-33.7); MCHC 32.9 g/dl (32.0-36.0); MEAN CELL VOLUME 81.6 fl (80-96); MONO % 8.2 % (3.8-10.2); NEUT % 65.8 % (42.8-82.8); PLATELET COUNT 613 10^3/uL (134-434); RBC 3.37 M/mm3 (3.60-5.2); RDW 14.6 % (11.6-15.6)
[2021-06-12] MEDS ORDERED: ACETAMINOPHEN 1000 MG/100 ML BAG IVPB ONE (22:55)
[2021-06-12 22:56] LABS: MEAN PLT VOLUME 5.8 fl (7.5-11.1)
[2021-06-12] MEDS ORDERED: ACETAMINOPHEN INJECTION 100 ML IVPB ONE (22:56)
[2021-06-12 23:02] LABS: INR 1.15 (0.83-1.09); PROTHROMBIN TIME (PATIENT) 13.2 SEC (9.7-13.0)
[2021-06-12 23:05] LABS: ACTIVATED PTT 26.8 SECONDS (25.2-36.5)
[2021-06-12 23:20] LABS: CALCIUM 8.9 mg/dL (8.5-10.1)
[2021-06-12 23:23] LABS: CREATININE 0.6 mg/dL (0.55-1.3)
[2021-06-12 23:25] LABS: BILIRUBIN,TOTAL 0.3 mg/dL (0.2-1); TOT PROT 6.7 g/dl (6.4-8.2)
[2021-06-12] MEDS ORDERED: ENOXAPARIN NA (PORCINE) 80 MG/0.8 ML DISP.SYRIN SQ ONE (23:59)
[2021-06-13] MEDS ORDERED: ENOXAPARIN NA (PORCINE) 100 MG/1 ML DISP.SYRIN SQ ONE (00:52)
[2021-06-13] MEDS ORDERED: POLYETHYLENE GLYCOL (HEALTHYLAX) 3350 17 GM PACKET PO PRN (01:13)
[2021-06-13] MEDS ORDERED: ACETAMINOPHEN INJECTION 100 ML IVPB ONE ×3 (03:05→20:53)
[2021-06-13] MEDS: ACETAMINOPHEN 1000 MG/100 ML BAG IVPB PRN ×2 (03:11→09:20)
[2021-06-13] MEDS ORDERED: DOCUSATE SODIUM 100 MG CAPSULE (FP) PO ONE ×2 (07:08→16:58)
[2021-06-13] MEDS: DOCUSATE SODIUM 100 MG CAPSULE (FP) PO SCH ×3 (07:10→23:52)
[2021-06-13] MEDS ORDERED: ENOXAPARIN NA (PORCINE) 100 MG/1 ML DISP.SYRIN SQ SCH (13:00)
[2021-06-13] MEDS ORDERED: HEPARIN NA (PORCINE) 5,000 UNITS/ML 1ML VIAL IVPUSH PRN ×2 (13:10)
[2021-06-13] MEDS ORDERED: traMADol HCL 50 MG TABLET ONE ×2 (13:14→19:08)
[2021-06-13] MEDS ORDERED: HEPARIN - 25,000 UNIT in SODIUM CHLORIDE 495 ML IV SCH (13:15)
[2021-06-13] MEDS: traMADol HCL 50 MG TABLET PO PRN ×2 (13:18→19:11)
[2021-06-13] MEDS ORDERED: HEPARIN INFUSION - 25,000 UNITS/500 ML INFUS.BAG IVPB ONE (13:33)
[2021-06-13] MEDS ORDERED: CLINDAMYCIN IVPB 300 MG in DEXTROSE 5%-WATER - 48 ML IVPB SCH (16:00)
[2021-06-13] MEDS: CLINDAMYCIN 300 MG PREMIX IVPB 300 MG/50 ML BAG IVPB SCH (17:14)
[2021-06-13] MEDS ORDERED: morphine CARPU-JECT 2 MG/1 ML DISP.SYRIN IVPUSH ONE (17:28)
[2021-06-13] MEDS ORDERED: HEPARIN NA (PORCINE) 5,000 UNITS/ML 1ML VIAL ONE (20:47)
[2021-06-14] MEDS: CLINDAMYCIN 300 MG PREMIX IVPB 300 MG/50 ML BAG IVPB SCH ×2 (02:37→10:40)
[2021-06-14] MEDS: traMADol HCL 50 MG TABLET PO PRN ×2 (03:55→09:16)
[2021-06-14] MEDS: DOCUSATE SODIUM 100 MG CAPSULE (FP) PO SCH ×3 (05:24→21:10)
[2021-06-14 07:35] LABS: EOS % 0.9 % (0-4.5); HEMATOCRIT 28.3 % (32.4-45.2); HEMOGLOBIN 9.1 GM/dL (10.7-15.3); LYMPH % 9.1 % (8-40); MCH 26.3 pg (25.7-33.7); MCHC 32.2 g/dl (32.0-36.0); MEAN CELL VOLUME 81.8 fl (80-96); MEAN PLT VOLUME 6.6 fl (7.5-11.1); MONO % 7.3 % (3.8-10.2); NEUT % 81.7 % (42.8-82.8); PLATELET COUNT 590 10^3/uL (134-434); RBC 3.46 M/mm3 (3.60-5.2); RDW 14.9 % (11.6-15.6); WHITE BLOOD COUNT 14.1 K/mm3 (4.0-10.0)
[2021-06-14 08:09] LABS: BLOOD UREA NITROGEN 6.7 mg/dL (7-18)
[2021-06-14 08:12] LABS: CREATININE 0.4 mg/dL (0.55-1.3)
[2021-06-14] MEDS ORDERED: morphine SULFATE 4 MG/ML VIAL IVPUSH PRN (09:55)
[2021-06-14] MEDS ORDERED: HEPARIN NA (PORCINE) 5,000 UNITS/ML 1ML VIAL IVPUSH PRN (09:56)
[2021-06-14] MEDS: HEPARIN INFUSION - 25,000 UNITS/500 ML INFUS.BAG IVPB SCH (10:57)
[2021-06-14 11:02] LABS: HEMOGLOBIN 9.7 GM/dL (10.7-15.3); MCH 25.8 pg (25.7-33.7); MCHC 31.3 g/dl (32.0-36.0); MEAN CELL VOLUME 82.3 fl (80-96); MEAN PLT VOLUME 6.6 fl (7.5-11.1); PLATELET COUNT 658 10^3/uL (134-434); RBC 3.76 M/mm3 (3.60-5.2); RDW 15.3 % (11.6-15.6); WHITE BLOOD COUNT 16.2 K/mm3 (4.0-10.0)
[2021-06-14] MEDS ORDERED: cefTRIAXone SODIUM 1 GM VIAL ONE (15:09)
[2021-06-14] MEDS ORDERED: DEXTROSE 5%-WATER - 50 ML IVPB ONE (15:10)
[2021-06-14] MEDS: CEFTRIAXONE 1 GM in DEXTROSE 5%-WATER - 50 ML IVPB SCH (15:24)
[2021-06-14 17:33] LABS: HEMATOCRIT 31.2 % (32.4-45.2); MCH 26.3 pg (25.7-33.7); MCHC 32.1 g/dl (32.0-36.0); MEAN CELL VOLUME 81.9 fl (80-96); MEAN PLT VOLUME 6.5 fl (7.5-11.1); PLATELET COUNT 666 10^3/uL (134-434); RBC 3.81 M/mm3 (3.60-5.2); RDW 15.3 % (11.6-15.6); WHITE BLOOD COUNT 16.2 K/mm3 (4.0-10.0)
[2021-06-14] MEDS: HEPARIN NA (PORCINE) 5,000 UNITS/ML 1ML VIAL IVPUSH PRN (17:59)
[2021-06-14] MEDS: morphine SULFATE 4 MG/ML VIAL IVPUSH PRN (21:10)
[2021-06-14 21:27] LABS: EPI CELLS >36 /uL (0-25.1); HYALINE CASTS 5 /uL (0-3.1); URINE APPEARANCE CLEAR; URINE BACTERIA 30 /uL (0-1359); URINE BILIRUBIN NEGATIVE (NEGATIVE); URINE COLOR YELLOW; URINE GLUCOSE (UA) NEGATIVE (NEGATIVE); URINE KETONE NEGATIVE (NEGATIVE); URINE LEUK ESTERASE 3+ (NEGATIVE); URINE NITRITE NEGATIVE (NEGATIVE); URINE PROTEIN TRACE (NEGATIVE); URINE RBC 14 /uL (0-23.9); URINE WBC 94 /uL (0-25.8)
[2021-06-15] MEDS: morphine SULFATE 4 MG/ML VIAL IVPUSH PRN ×4 (01:10→18:06)
[2021-06-15] MEDS: HEPARIN NA (PORCINE) 5,000 UNITS/ML 1ML VIAL IVPUSH PRN (01:11)
[2021-06-15] MEDS: DOCUSATE SODIUM 100 MG CAPSULE (FP) PO SCH ×3 (05:12→21:00)
[2021-06-15] MEDS ORDERED: cefTRIAXone SODIUM 1 GM VIAL ONE (08:52)
[2021-06-15] MEDS ORDERED: DEXTROSE 5%-WATER - 50 ML IVPB ONE (08:52)
[2021-06-15] MEDS: CEFTRIAXONE 1 GM in DEXTROSE 5%-WATER - 50 ML IVPB SCH (09:01)
[2021-06-15 09:52] LABS: HEMATOCRIT 29.5 % (32.4-45.2); HEMOGLOBIN 9.4 GM/dL (10.7-15.3); MCH 26.1 pg (25.7-33.7); MCHC 31.7 g/dl (32.0-36.0); MEAN CELL VOLUME 82.3 fl (80-96); PLATELET COUNT 613 10^3/uL (134-434); RBC 3.58 M/mm3 (3.60-5.2); RDW 15.3 % (11.6-15.6)
[2021-06-15 10:34] LABS: CALCIUM 9.1 mg/dL (8.5-10.1)
[2021-06-15 10:35] LABS: BLOOD UREA NITROGEN 5.4 mg/dL (7-18)
[2021-06-15 10:38] LABS: CREATININE 0.5 mg/dL (0.55-1.3)
[2021-06-15] MEDS: ACETAMINOPHEN 325 MG TABLET (FP) PO PRN (16:05)
[2021-06-15] MEDS: HEPARIN INFUSION - 25,000 UNITS/500 ML INFUS.BAG IVPB SCH ×2 (19:29→20:38)
[2021-06-15] MEDS: POLYETHYLENE GLYCOL (HEALTHYLAX) 3350 17 GM PACKET PO SCH (20:41)
[2021-06-16] MEDS: morphine SULFATE 4 MG/ML VIAL IVPUSH PRN ×4 (00:15→22:04)
[2021-06-16] MEDS: DOCUSATE SODIUM 100 MG CAPSULE (FP) PO SCH ×3 (05:27→22:05)
[2021-06-16] MEDS: PHENYLEPHRINE HCL/COCOA BUTTER SUPPOSITORY RC PRN ×2 (06:32→22:05)
[2021-06-16 08:16] LABS: BASO % 0.4 % (0-2.0); EOS % 0.9 % (0-4.5); HEMOGLOBIN 8.4 GM/dL (10.7-15.3); LYMPH % 17.2 % (8-40); MCH 26.2 pg (25.7-33.7); MCHC 32.5 g/dl (32.0-36.0); MEAN CELL VOLUME 80.7 fl (80-96); MEAN PLT VOLUME 6.4 fl (7.5-11.1); MONO % 7.4 % (3.8-10.2); NEUT % 74.1 % (42.8-82.8); PLATELET COUNT 554 10^3/uL (134-434); RBC 3.22 M/mm3 (3.60-5.2); RDW 15.1 % (11.6-15.6); WHITE BLOOD COUNT 12.1 K/mm3 (4.0-10.0)
[2021-06-16] MEDS ORDERED: cefTRIAXone SODIUM 1 GM VIAL ONE (09:39)
[2021-06-16] MEDS ORDERED: DEXTROSE 5%-WATER - 50 ML IVPB ONE (09:39)
[2021-06-16] MEDS: CEFTRIAXONE 1 GM in DEXTROSE 5%-WATER - 50 ML IVPB SCH (09:57)
[2021-06-16] MEDS: HEPARIN INFUSION - 25,000 UNITS/500 ML INFUS.BAG IVPB SCH (10:13)
[2021-06-16] MEDS: POLYETHYLENE GLYCOL (HEALTHYLAX) 3350 17 GM PACKET PO SCH (12:12)
[2021-06-16] MEDS: ACETAMINOPHEN 325 MG TABLET (FP) PO PRN (19:01)
[2021-06-16] MEDS ORDERED: WITCH HAZEL 50% (TUCKS) 40 PAD/JAR PAD TP PRN (21:52)
[2021-06-16] MEDS ORDERED: POLYETHYLENE GLYCOL (HEALTHYLAX) 3350 17 GM PACKET PO SCH (22:00)
[2021-06-17] MEDS: HEPARIN INFUSION - 25,000 UNITS/500 ML INFUS.BAG IVPB SCH ×2 (00:58→14:02)
[2021-06-17] MEDS: morphine SULFATE 4 MG/ML VIAL IVPUSH PRN ×2 (05:12→19:49)
[2021-06-17] MEDS: DOCUSATE SODIUM 100 MG CAPSULE (FP) PO SCH (05:12)
[2021-06-17 08:18] LABS: BASO % 1.1 % (0-2.0); EOS % 0.9 % (0-4.5); HEMATOCRIT 25.3 % (32.4-45.2); HEMOGLOBIN 8.3 GM/dL (10.7-15.3); LYMPH % 17.6 % (8-40); MCH 26.7 pg (25.7-33.7); MCHC 32.9 g/dl (32.0-36.0); MEAN CELL VOLUME 81.1 fl (80-96); MEAN PLT VOLUME 7.3 fl (7.5-11.1); MONO % 8.9 % (3.8-10.2); NEUT % 71.5 % (42.8-82.8); PLATELET COUNT 574 10^3/uL (134-434); RBC 3.12 M/mm3 (3.60-5.2); RDW 15.6 % (11.6-15.6); WHITE BLOOD COUNT 10.6 K/mm3 (4.0-10.0)
[2021-06-17 08:37] LABS: CALCIUM 8.9 mg/dL (8.5-10.1)
[2021-06-17 08:38] LABS: ALBUMIN 2.6 g/dl (3.4-5.0); BLOOD UREA NITROGEN 6.5 mg/dL (7-18)
[2021-06-17 08:41] LABS: CREATININE 0.4 mg/dL (0.55-1.3)
[2021-06-17 08:43] LABS: BILIRUBIN,TOTAL 0.6 mg/dL (0.2-1); TOT PROT 6.5 g/dl (6.4-8.2)
[2021-06-17] MEDS: HEPARIN NA (PORCINE) 5,000 UNITS/ML 1ML VIAL IVPUSH PRN (09:27)
[2021-06-17] MEDS ORDERED: cefTRIAXone SODIUM 1 GM VIAL ONE (09:47)
[2021-06-17] MEDS ORDERED: DEXTROSE 5%-WATER - 50 ML IVPB ONE (09:48)
[2021-06-17] MEDS ORDERED: POLYETHYLENE GLYCOL (HEALTHYLAX) 3350 17 GM PACKET PO SCH (10:00)
[2021-06-17] MEDS: CEFTRIAXONE 1 GM in DEXTROSE 5%-WATER - 50 ML IVPB SCH (10:11)
[2021-06-17] MEDS: ACETAMINOPHEN 325 MG TABLET (FP) PO PRN (10:29)
[2021-06-17] MEDS ORDERED: MINERAL OIL ENEMA 133 ML ENEMA RC ONE (12:47)
[2021-06-17] MEDS ORDERED: FERRIC CARBOXYMALTOSE 750 MG/15 ML VIAL IVPB ONE (13:00)
[2021-06-17] MEDS ORDERED: FERRIC CARBOXYMALTOSE 750 MG in SODIUM CHLORIDE 250 ML IVPB ONE (14:00)
[2021-06-17] MEDS: POLYETHYLENE GLYCOL (HEALTHYLAX) 3350 17 GM PACKET PO SCH ×2 (14:37→21:11)
[2021-06-17] MEDS: HYDROCORTISONE 2.5% TOPICAL CREAM 30 GM TUBE TP SCH (21:11)
[2021-06-18] MEDS ORDERED: morphine SULFATE 4 MG/ML VIAL IVPUSH ONE (00:49)
[2021-06-18] MEDS: HEPARIN INFUSION - 25,000 UNITS/500 ML INFUS.BAG IVPB SCH ×2 (03:19→10:57)
[2021-06-18] MEDS: ACETAMINOPHEN 325 MG TABLET (FP) PO PRN ×4 (05:20→23:46)
[2021-06-18] MEDS: POLYETHYLENE GLYCOL (HEALTHYLAX) 3350 17 GM PACKET PO SCH ×3 (05:38→21:47)
[2021-06-18 08:16] LABS: ALBUMIN 2.5 g/dl (3.4-5.0); BLOOD UREA NITROGEN 5.7 mg/dL (7-18); CALCIUM 8.8 mg/dL (8.5-10.1)
[2021-06-18 08:19] LABS: CREATININE 0.4 mg/dL (0.55-1.3)
[2021-06-18 08:21] LABS: BILIRUBIN,TOTAL 0.3 mg/dL (0.2-1); TOT PROT 6.5 g/dl (6.4-8.2)
[2021-06-18] MEDS ORDERED: cefTRIAXone SODIUM 1 GM VIAL ONE (09:05)
[2021-06-18] MEDS ORDERED: DEXTROSE 5%-WATER - 50 ML IVPB ONE (09:05)
[2021-06-18] MEDS: HYDROCORTISONE 2.5% TOPICAL CREAM 30 GM TUBE TP SCH ×2 (09:23→21:47)
[2021-06-18] MEDS: CEFTRIAXONE 1 GM in DEXTROSE 5%-WATER - 50 ML IVPB SCH (09:27)
[2021-06-18 10:14] LABS: EOS % 1.7 % (0-4.5); HEMATOCRIT 25.3 % (32.4-45.2); LYMPH % 20.2 % (8-40); MCH 25.8 pg (25.7-33.7); MCHC 31.8 g/dl (32.0-36.0); MEAN CELL VOLUME 81.2 fl (80-96); MEAN PLT VOLUME 7.2 fl (7.5-11.1); NEUT % 69.1 % (42.8-82.8); PLATELET COUNT 592 10^3/uL (134-434); RBC 3.11 M/mm3 (3.60-5.2); RDW 15.6 % (11.6-15.6); WHITE BLOOD COUNT 10.1 K/mm3 (4.0-10.0)
[2021-06-18] MEDS: HEPARIN NA (PORCINE) 5,000 UNITS/ML 1ML VIAL IVPUSH PRN (10:54)
[2021-06-18 11:05] LABS: HEMATOCRIT 29.7 % (32.4-45.2); HEMOGLOBIN 9.3 GM/dL (10.7-15.3); MCH 25.4 pg (25.7-33.7); MCHC 31.2 g/dl (32.0-36.0); MEAN CELL VOLUME 81.5 fl (80-96); MEAN PLT VOLUME 6.9 fl (7.5-11.1); PLATELET COUNT 668 10^3/uL (134-434); RBC 3.65 M/mm3 (3.60-5.2); RDW 15.8 % (11.6-15.6); WHITE BLOOD COUNT 12.6 K/mm3 (4.0-10.0)
[2021-06-18] MEDS: oxyCODONE HCL 5 MG TABLET PO PRN (20:20)
[2021-06-19] MEDS: oxyCODONE HCL 5 MG TABLET PO PRN ×2 (02:33→13:35)
[2021-06-19] MEDS: HEPARIN INFUSION - 25,000 UNITS/500 ML INFUS.BAG IVPB SCH ×3 (04:06→16:15)
[2021-06-19] MEDS: POLYETHYLENE GLYCOL (HEALTHYLAX) 3350 17 GM PACKET PO SCH ×3 (06:43→21:34)
[2021-06-19 09:06] LABS: HEMATOCRIT 25.3 % (32.4-45.2); MCH 25.7 pg (25.7-33.7); MCHC 31.5 g/dl (32.0-36.0); MEAN CELL VOLUME 81.5 fl (80-96); MEAN PLT VOLUME 6.8 fl (7.5-11.1); PLATELET COUNT 592 10^3/uL (134-434); RDW 15.9 % (11.6-15.6); WHITE BLOOD COUNT 12.7 K/mm3 (4.0-10.0)
[2021-06-19] MEDS ORDERED: cefTRIAXone SODIUM 1 GM VIAL ONE (09:28)
[2021-06-19] MEDS ORDERED: DEXTROSE 5%-WATER - 50 ML IVPB ONE (09:28)
[2021-06-19] MEDS: CEFTRIAXONE 1 GM in DEXTROSE 5%-WATER - 50 ML IVPB SCH (09:35)
[2021-06-19] MEDS: HYDROCORTISONE 2.5% TOPICAL CREAM 30 GM TUBE TP SCH ×2 (09:37→21:36)
[2021-06-19] MEDS: ACETAMINOPHEN 325 MG TABLET (FP) PO PRN (18:31)
[2021-06-20] MEDS: ACETAMINOPHEN 325 MG TABLET (FP) PO PRN ×2 (03:19→10:22)
[2021-06-20 04:06] LABS: FACTOR 5 ACTIVITY 120 % (70-150)
[2021-06-20] MEDS: POLYETHYLENE GLYCOL (HEALTHYLAX) 3350 17 GM PACKET PO SCH ×3 (06:30→20:59)
[2021-06-20] MEDS: oxyCODONE HCL 5 MG TABLET PO PRN ×4 (06:37→20:59)
[2021-06-20 07:44] LABS: EOS % 3.3 % (0-4.5); HEMATOCRIT 25.1 % (32.4-45.2); HEMOGLOBIN 8.1 GM/dL (10.7-15.3); LYMPH % 24.3 % (8-40); MCH 26.3 pg (25.7-33.7); MCHC 32.2 g/dl (32.0-36.0); MEAN CELL VOLUME 81.7 fl (80-96); MEAN PLT VOLUME 6.9 fl (7.5-11.1); MONO % 7.7 % (3.8-10.2); NEUT % 63.7 % (42.8-82.8); PLATELET COUNT 641 10^3/uL (134-434); RBC 3.08 M/mm3 (3.60-5.2); RDW 15.7 % (11.6-15.6)
[2021-06-20 08:00] LABS: CALCIUM 8.5 mg/dL (8.5-10.1)
[2021-06-20 08:01] LABS: ALBUMIN 2.3 g/dl (3.4-5.0); BLOOD UREA NITROGEN 5.5 mg/dL (7-18)
[2021-06-20 08:04] LABS: CREATININE 0.4 mg/dL (0.55-1.3)
[2021-06-20 08:06] LABS: BILIRUBIN,TOTAL 0.3 mg/dL (0.2-1); TOT PROT 6.2 g/dl (6.4-8.2)
[2021-06-20] MEDS ORDERED: DEXTROSE 5%-WATER - 50 ML IVPB ONE (09:36)
[2021-06-20] MEDS ORDERED: cefTRIAXone SODIUM 1 GM VIAL ONE (09:36)
[2021-06-20] MEDS: CEFTRIAXONE 1 GM in DEXTROSE 5%-WATER - 50 ML IVPB SCH (09:42)
[2021-06-20] MEDS: HYDROCORTISONE 2.5% TOPICAL CREAM 30 GM TUBE TP SCH ×2 (09:43→20:59)
[2021-06-20] MEDS: HEPARIN INFUSION - 25,000 UNITS/500 ML INFUS.BAG IVPB SCH ×3 (09:48→17:27)
[2021-06-20] MEDS: HEPARIN NA (PORCINE) 5,000 UNITS/ML 1ML VIAL IVPUSH PRN (17:28)
[2021-06-21] MEDS: ACETAMINOPHEN 325 MG TABLET (FP) PO PRN ×2 (01:33→18:07)
[2021-06-21] MEDS: HEPARIN NA (PORCINE) 5,000 UNITS/ML 1ML VIAL IVPUSH PRN (01:33)
[2021-06-21] MEDS: oxyCODONE HCL 5 MG TABLET PO PRN ×3 (04:49→18:06)
[2021-06-21] MEDS: POLYETHYLENE GLYCOL (HEALTHYLAX) 3350 17 GM PACKET PO SCH ×3 (05:31→21:18)
[2021-06-21] MEDS ORDERED: cefTRIAXone SODIUM 1 GM VIAL ONE (10:21)
[2021-06-21] MEDS ORDERED: DEXTROSE 5%-WATER - 50 ML IVPB ONE (10:21)
[2021-06-21] MEDS: HYDROCORTISONE 2.5% TOPICAL CREAM 30 GM TUBE TP SCH ×2 (10:22→21:18)
[2021-06-21] MEDS: CEFTRIAXONE 1 GM in DEXTROSE 5%-WATER - 50 ML IVPB SCH (10:33)
[2021-06-21] MEDS ORDERED: HEPARIN NA (PORCINE) 5,000 UNITS/ML 1ML VIAL IVPUSH PRN ×2 (14:20→14:21)
[2021-06-21] MEDS: HEPARIN INFUSION - 25,000 UNITS/500 ML INFUS.BAG IVPB SCH ×2 (14:36→20:59)
[2021-06-22] MEDS: HEPARIN INFUSION - 25,000 UNITS/500 ML INFUS.BAG IVPB SCH ×3 (04:21→18:32)
[2021-06-22] MEDS: POLYETHYLENE GLYCOL (HEALTHYLAX) 3350 17 GM PACKET PO SCH ×3 (06:14→22:35)
[2021-06-22 07:45] LABS: HEMATOCRIT 26.6 % (32.4-45.2); HEMOGLOBIN 8.7 GM/dL (10.7-15.3); MCH 26.6 pg (25.7-33.7); MCHC 32.8 g/dl (32.0-36.0); MEAN CELL VOLUME 81.2 fl (80-96); MEAN PLT VOLUME 6.4 fl (7.5-11.1); PLATELET COUNT 695 10^3/uL (134-434); RBC 3.28 M/mm3 (3.60-5.2); RDW 16.2 % (11.6-15.6); WHITE BLOOD COUNT 13.3 K/mm3 (4.0-10.0)
[2021-06-22 08:39] LABS: CALCIUM 9.2 mg/dL (8.5-10.1)
[2021-06-22 08:40] LABS: ALBUMIN 2.6 g/dl (3.4-5.0); BLOOD UREA NITROGEN 5.5 mg/dL (7-18)
[2021-06-22 08:43] LABS: CREATININE 0.4 mg/dL (0.55-1.3)
[2021-06-22 08:44] LABS: BILIRUBIN,TOTAL 0.4 mg/dL (0.2-1); TOT PROT 6.8 g/dl (6.4-8.2)
[2021-06-22 09:00] LABS: ANISOCYTOSIS 0; HELMET CELLS 0; HOWELL-JOLLY BODIES 0; MACROCYTOSIS 0; OVALOCYTE 0; PLATELET ESTIMATE INCREASED; ROULEAU 0; SICKELED CELLS 0; TARGET CELLS 0; TEAR DROP CELLS 0; TOXIC GRANULATION 0
[2021-06-22] MEDS: HYDROCORTISONE 2.5% TOPICAL CREAM 30 GM TUBE TP SCH ×2 (11:01→22:35)
[2021-06-22] MEDS: oxyCODONE HCL 5 MG TABLET PO PRN ×2 (11:01→18:42)
[2021-06-22] MEDS: ACETAMINOPHEN 325 MG TABLET (FP) PO PRN ×2 (11:02→18:27)
[2021-06-22 11:14] LABS: HEMATOCRIT 26.8 % (32.4-45.2); HEMOGLOBIN 8.6 GM/dL (10.7-15.3); MCH 26.1 pg (25.7-33.7); MCHC 32.1 g/dl (32.0-36.0); MEAN CELL VOLUME 81.4 fl (80-96); MEAN PLT VOLUME 6.2 fl (7.5-11.1); PLATELET COUNT 751 10^3/uL (134-434); RDW 16.3 % (11.6-15.6); WHITE BLOOD COUNT 12.8 K/mm3 (4.0-10.0)
[2021-06-22] MEDS ORDERED: ENOXAPARIN NA (PORCINE) 80 MG/0.8 ML DISP.SYRIN SQ SCH (21:30)
[2021-06-23] MEDS: oxyCODONE HCL 5 MG TABLET PO PRN ×3 (01:23→21:03)
[2021-06-23] MEDS: ACETAMINOPHEN 325 MG TABLET (FP) PO PRN ×3 (01:23→23:29)
[2021-06-23] MEDS: POLYETHYLENE GLYCOL (HEALTHYLAX) 3350 17 GM PACKET PO SCH ×4 (05:27→21:07)
[2021-06-23 09:02] LABS: HEMATOCRIT 28.4 % (32.4-45.2); HEMOGLOBIN 8.6 GM/dL (10.7-15.3); MCH 25.4 pg (25.7-33.7); MCHC 30.4 g/dl (32.0-36.0); MEAN CELL VOLUME 83.7 fl (80-96); MEAN PLT VOLUME 6.5 fl (7.5-11.1); PLATELET COUNT 748 10^3/uL (134-434); RDW 16.9 % (11.6-15.6); WHITE BLOOD COUNT 11.7 K/mm3 (4.0-10.0)
[2021-06-23] MEDS: ENOXAPARIN NA (PORCINE) 100 MG/1 ML DISP.SYRIN SQ SCH ×2 (09:02→21:02)
[2021-06-23] MEDS: HYDROCORTISONE 2.5% TOPICAL CREAM 30 GM TUBE TP SCH ×2 (09:03→21:02)
[2021-06-23 11:31] LABS: ANISOCYTOSIS 0; MACROCYTOSIS 0; PLATELET ESTIMATE INCREASED
[2021-06-24] MEDS: POLYETHYLENE GLYCOL (HEALTHYLAX) 3350 17 GM PACKET PO SCH ×3 (06:03→22:02)
[2021-06-24] MEDS: HYDROCORTISONE 2.5% TOPICAL CREAM 30 GM TUBE TP SCH ×2 (09:48→22:02)
[2021-06-24] MEDS: ENOXAPARIN NA (PORCINE) 100 MG/1 ML DISP.SYRIN SQ SCH ×2 (09:48→22:02)
[2021-06-24] MEDS: oxyCODONE HCL 5 MG TABLET PO PRN (10:09)
[2021-06-24] MEDS: ACETAMINOPHEN 325 MG TABLET (FP) PO PRN ×2 (10:10→18:54)
[2021-06-24 12:18] LABS: HEMATOCRIT 27.4 % (32.4-45.2); HEMOGLOBIN 8.8 GM/dL (10.7-15.3); MCH 26.5 pg (25.7-33.7); MCHC 32.3 g/dl (32.0-36.0); MEAN PLT VOLUME 6.3 fl (7.5-11.1); PLATELET COUNT 849 10^3/uL (134-434); RBC 3.34 M/mm3 (3.60-5.2); WHITE BLOOD COUNT 12.8 K/mm3 (4.0-10.0)
[2021-06-24] MEDS ORDERED: oxyCODONE HCL 5 MG TABLET PO PRN (13:18)
[2021-06-24] MEDS ORDERED: FERRIC CARBOXYMALTOSE 750 MG in SODIUM CHLORIDE 250 ML IVPB ONE (19:00)
[2021-06-25] MEDS: POLYETHYLENE GLYCOL (HEALTHYLAX) 3350 17 GM PACKET PO SCH ×2 (05:40→14:42)
[2021-06-25] MEDS: ACETAMINOPHEN 325 MG TABLET (FP) PO PRN (05:40)
[2021-06-25] MEDS: ENOXAPARIN NA (PORCINE) 100 MG/1 ML DISP.SYRIN SQ SCH (09:10)
[2021-06-25] MEDS: HYDROCORTISONE 2.5% TOPICAL CREAM 30 GM TUBE TP SCH (09:11)
[2021-06-25 12:38] LABS: BASO % 1.1 % (0-2.0); EOS % 2.6 % (0-4.5); HEMATOCRIT 28.2 % (32.4-45.2); LYMPH % 13.8 % (8-40); MCH 26.4 pg (25.7-33.7); MEAN CELL VOLUME 82.4 fl (80-96); MEAN PLT VOLUME 6.7 fl (7.5-11.1); MONO % 8.5 % (3.8-10.2); PLATELET COUNT 854 10^3/uL (134-434); RBC 3.42 M/mm3 (3.60-5.2); RDW 16.6 % (11.6-15.6); WHITE BLOOD COUNT 10.8 K/mm3 (4.0-10.0)
[2021-06-25 12:58] LABS: INR 1.25 (0.83-1.09); PROTHROMBIN TIME (PATIENT) 14.4 SEC (9.7-13.0)
[2021-06-25 13:02] LABS: BLOOD UREA NITROGEN 7.6 mg/dL (7-18); CALCIUM 9.5 mg/dL (8.5-10.1)
[2021-06-25 13:03] LABS: ALBUMIN 2.7 g/dl (3.4-5.0)
[2021-06-25 13:04] LABS: URIC ACID 4.1 mg/dL (2.6-7.2)
[2021-06-25 13:06] LABS: BILIRUBIN,TOTAL 0.3 mg/dL (0.2-1)
[2021-06-25 13:07] LABS: CREATININE 0.4 mg/dL (0.55-1.3)
[2021-06-25 13:20] LABS: ERYTHROCYTE SEDIMENTATION RATE 105 mm/hr (0-20)
[2021-06-25 15:03] VITALS: BP 130/65; PULSE 80; TEMP 98.1
[2021-06-25 15:58] LABS: EPI CELLS 31 /uL (0-25.1); HYALINE CASTS 1 /uL (0-3.1); URINE APPEARANCE CLEAR; URINE BACTERIA 15 /uL (0-1359); URINE BILIRUBIN NEGATIVE (NEGATIVE); URINE COLOR YELLOW; URINE GLUCOSE (UA) NEGATIVE (NEGATIVE); URINE KETONE NEGATIVE (NEGATIVE); URINE LEUK ESTERASE 2+ (NEGATIVE); URINE NITRITE NEGATIVE (NEGATIVE); URINE PROTEIN NEGATIVE (NEGATIVE); URINE RBC 140 /uL (0-23.9); URINE WBC 207 /uL (0-25.8)
== END 2021-06-25 19:33 | disposition home or self-care (01) | DRG 561 ==
LOC: JER 20:06 → JERBED 23:37 → J4S 06-13 23:32 → OBSVTOIN 06-15 13:19
PROVIDERS: ADMIT Hospitalist; ATTEND Family Medicine
DX: O87.1 Deep phlebothrombosis in the puerperium (principal); I82.411 Acute embolism and thrombosis of right femoral vein; E87.0 Hyperosmolality and hypernatremia; D72.829 Elevated white blood cell count, unspecified; K59.00 Constipation, unspecified; N39.0 Urinary tract infection, site not specified; R50.9 Fever, unspecified; D36.9 Benign neoplasm, unspecified site; L03.115 Cellulitis of right lower limb; D75.839 Thrombocytosis, unspecified; Z98.891 History of uterine scar from previous surgery
CPT/HCPCS: 36415; 72193-TC; 73701-TC-RT; 74019-TC-FY; 80048; 80053; 80061; 81003; 81240; 81241; 82272; 82306; 82728; 83036; 83540; 83550; 83735; 83935; 84153; 84436; 84443; 84550; 85025; 85027; 85220; 85597; 85610; 85613; 85651; 85730; 85732; 86038; 86146; 86147; 87040; 93005; 93010; 93971-TC; 97116-GP; 97162-GP; 99285-25; C9803; G0378; J0131; J1439; J1644; Q9967; U0003; U0005

== ENCOUNTER 2021-08-31 09:11 | Emergency (ER) | payer OTHER ==
[2021-08-31 09:30] VITALS: BP 119/86; PULSE 83; TEMP 99; BMI 24.9
[2021-08-31] MEDS ORDERED: ACETAMINOPHEN 325 MG TABLET (FP) PO ONE (11:17)
[2021-08-31] MEDS ORDERED: KETOROLAC TROMETHAMINE 30 MG/1 ML VIAL IVPUSH ONE (11:17)
[2021-08-31 11:19] LABS: BASO % 0.4 % (0-2.0); EOS % 0.5 % (0-4.5); HEMATOCRIT 43.5 % (32.4-45.2); HEMOGLOBIN 14.3 GM/dL (10.7-15.3); LYMPH % 23.3 % (8-40); MCH 27.2 pg (25.7-33.7); MCHC 32.8 g/dl (32.0-36.0); MEAN CELL VOLUME 82.9 fl (80-96); MEAN PLT VOLUME 8.8 fl (7.5-11.1); MONO % 7.5 % (3.8-10.2); NEUT % 68.3 % (42.8-82.8); PLATELET COUNT 235 10^3/uL (134-434); RBC 5.25 M/mm3 (3.60-5.2); RDW 15.2 % (11.6-15.6); WHITE BLOOD COUNT 6.6 K/mm3 (4.0-10.0)
[2021-08-31 11:34] LABS: INR 1.26 (0.83-1.09); PROTHROMBIN TIME (PATIENT) 14.5 SEC (9.7-13.0)
[2021-08-31 11:37] LABS: ACTIVATED PTT 36.3 SECONDS (25.2-36.5)
[2021-08-31 11:43] LABS: ALBUMIN 4.1 g/dl (3.4-5.0)
[2021-08-31 11:46] LABS: CREATININE 0.5 mg/dL (0.55-1.3)
[2021-08-31 11:48] LABS: BILIRUBIN,TOTAL 0.4 mg/dL (0.2-1); TOT PROT 7.6 g/dl (6.4-8.2)
[2021-08-31] MEDS ORDERED: ACETAMINOPHEN 325 MG TABLET (FP) ONE (11:48)
[2021-08-31] MEDS ORDERED: KETOROLAC TROMETHAMINE 30 MG/1 ML VIAL ONE (11:49)
== END 2021-08-31 15:10 | disposition home or self-care (01) ==
LOC: JER 09:11
PROC: 3E0333Z Introduction of Anti-inflammatory into Peripheral Vein, Percutaneous Approach (ICD-10-PCS; principal; 2021-08-31)
DX: R07.9 Chest pain, unspecified (principal)
CPT/HCPCS: 36415; 71045-TC-FY; 80053; 84484; 85025; 85610; 85730; 87804; 93005; 93010; 99285-25; C9803-CS; U0003; U0005

== ENCOUNTER 2021-11-11 17:02 | Inpatient (IN) | payer OTHER ==
[2021-11-11] MEDS ORDERED: HEPARIN NA (PORCINE) 5,000 UNITS/ML 1ML VIAL IVPUSH PRN ×4 (20:15→20:33)
[2021-11-11] MEDS ORDERED: HEPARIN INFUSION - 25,000 UNITS/500 ML INFUS.BAG IVPB SCH (20:15)
[2021-11-11 20:19] LABS: BASO % 0.5 % (0-2.0); EOS % 1.5 % (0-4.5); HEMATOCRIT 37.6 % (32.4-45.2); HEMOGLOBIN 12.4 GM/dL (10.7-15.3); LYMPH % 40.4 % (8-40); MCH 27.8 pg (25.7-33.7); MCHC 32.9 g/dl (32.0-36.0); MEAN CELL VOLUME 84.3 fl (80-96); MEAN PLT VOLUME 7.8 fl (7.5-11.1); MONO % 5.2 % (3.8-10.2); NEUT % 52.4 % (42.8-82.8); PLATELET COUNT 371 10^3/uL (134-434); RBC 4.46 M/mm3 (3.60-5.2); RDW 14.3 % (11.6-15.6); WHITE BLOOD COUNT 8.7 K/mm3 (4.0-10.0)
[2021-11-11 20:26] LABS: INR 1.34 (0.83-1.09); PROTHROMBIN TIME (PATIENT) 15.5 SEC (9.7-13.0)
[2021-11-11 20:28] LABS: ACTIVATED PTT 35.7 SECONDS (25.2-36.5)
[2021-11-11 20:31] LABS: ALBUMIN 4.4 g/dl (3.4-5.0); BLOOD UREA NITROGEN 6.4 mg/dL (7-18); CALCIUM 9.5 mg/dL (8.5-10.1)
[2021-11-11] MEDS: HEPARIN INFUSION - 25,000 UNITS/500 ML INFUS.BAG IVPB SCH (20:33)
[2021-11-11 20:35] LABS: CREATININE 0.5 mg/dL (0.55-1.3)
[2021-11-11 20:36] LABS: BILIRUBIN,TOTAL 1.2 mg/dL (0.2-1); TOT PROT 7.6 g/dl (6.4-8.2)
[2021-11-11] MEDS ORDERED: ACETAMINOPHEN 325 MG TABLET (FP) PO PRN (23:58)
[2021-11-12 09:26] LABS: BASO % 0.5 % (0-2.0); EOS % 1.5 % (0-4.5); HEMATOCRIT 35.8 % (32.4-45.2); HEMOGLOBIN 12.1 GM/dL (10.7-15.3); LYMPH % 37.4 % (8-40); MCH 28.4 pg (25.7-33.7); MCHC 33.8 g/dl (32.0-36.0); MEAN PLT VOLUME 8.7 fl (7.5-11.1); MONO % 6.1 % (3.8-10.2); NEUT % 54.5 % (42.8-82.8); PLATELET COUNT 349 10^3/uL (134-434); RBC 4.26 M/mm3 (3.60-5.2); RDW 14.2 % (11.6-15.6); WHITE BLOOD COUNT 6.3 K/mm3 (4.0-10.0)
[2021-11-12 09:50] LABS: BLOOD UREA NITROGEN 6.7 mg/dL (7-18); CALCIUM 9.2 mg/dL (8.5-10.1)
[2021-11-12 09:53] LABS: CREATININE 0.4 mg/dL (0.55-1.3)
[2021-11-12 09:54] LABS: BILIRUBIN,TOTAL 1.6 mg/dL (0.2-1); TOT PROT 6.8 g/dl (6.4-8.2)
[2021-11-12] MEDS ORDERED: HEPARIN INFUSION - 25,000 UNITS/500 ML INFUS.BAG IVPB ONE (16:45)
[2021-11-12 18:03] VITALS: BMI 26.4
[2021-11-12] MEDS: HEPARIN INFUSION - 25,000 UNITS/500 ML INFUS.BAG IVPB SCH (21:02)
[2021-11-13] MEDS ORDERED: ENOXAPARIN NA (PORCINE) 80 MG/0.8 ML DISP.SYRIN SQ SCH ×2 (10:00)
[2021-11-13 14:25] VITALS: BP 123/73; PULSE 20; TEMP 98.1
== END 2021-11-13 17:37 | disposition home or self-care (01) | DRG 197 ==
LOC: JER 17:02 → JERBED 21:50 → J6S 11-12 17:19
PROVIDERS: ADMIT Internal Medicine; ATTEND Family Medicine
DX: I82.431 Acute embolism and thrombosis of right popliteal vein (principal); I82.411 Acute embolism and thrombosis of right femoral vein; R07.9 Chest pain, unspecified; F41.9 Anxiety disorder, unspecified; R07.89 Other chest pain; D68.51 Activated protein C resistance; R00.1 Bradycardia, unspecified
CPT/HCPCS: 36415; 71046-TC-FY; 71275-TC; 80053; 84484; 84703; 85025; 85379; 85610; 85730; 93005; 93010; 93971-TC; 99285-25; C9803-CS; J1644; Q9967; U0003; U0005

== ENCOUNTER 2022-02-19 13:33 | Inpatient (IN) | payer OTHER ==
[2022-02-19 13:41] VITALS: RESP 18
[2022-02-19] MEDS ORDERED: HEPARIN NA (PORCINE) 5,000 UNITS/ML 1ML VIAL IVPUSH ONE (17:42)
[2022-02-19] MEDS ORDERED: HEPARIN NA (PORCINE) 5,000 UNITS/ML 1ML VIAL ONE ×2 (17:55→20:24)
[2022-02-19] MEDS ORDERED: HEPARIN NA (PORCINE) 5,000 UNITS/ML 1ML VIAL IVPUSH PRN ×2 (18:21)
[2022-02-19 18:43] LABS: BASO % 0.6 % (0-2.0); EOS % 3.1 % (0-4.5); HEMATOCRIT 38.5 % (32.4-45.2); HEMOGLOBIN 12.8 GM/dL (10.7-15.3); MCH 28.6 pg (25.7-33.7); MCHC 33.3 g/dl (32.0-36.0); MEAN PLT VOLUME 7.6 fl (7.5-11.1); MONO % 5.9 % (3.8-10.2); NEUT % 62.4 % (42.8-82.8); PLATELET COUNT 395 10^3/uL (134-434); RBC 4.48 M/mm3 (3.60-5.2); RDW 12.9 % (11.6-15.6); WHITE BLOOD COUNT 9.1 K/mm3 (4.0-10.0)
[2022-02-19 18:51] LABS: INR 1.1 (0.83-1.09); PROTHROMBIN TIME (PATIENT) 12.7 SEC (9.7-13.0)
[2022-02-19 18:54] LABS: ACTIVATED PTT 30.9 SECONDS (25.2-36.5)
[2022-02-19 18:56] LABS: ALBUMIN 4.1 g/dl (3.4-5.0); BLOOD UREA NITROGEN 17.1 mg/dL (7-18); CALCIUM 9.4 mg/dL (8.5-10.1)
[2022-02-19 19:00] LABS: CREATININE 0.4 mg/dL (0.55-1.3)
[2022-02-19 19:01] LABS: BILIRUBIN,TOTAL 0.4 mg/dL (0.2-1); TOT PROT 7.3 g/dl (6.4-8.2)
[2022-02-19] MEDS ORDERED: DOCUSATE SODIUM 100 MG CAPSULE (FP) PO PRN (20:11)
[2022-02-19] MEDS ORDERED: ACETAMINOPHEN 1000 MG/100 ML BAG IVPB PRN (20:18)
[2022-02-19] MEDS ORDERED: HEPARIN INFUSION - 25,000 UNITS/500 ML INFUS.BAG IVPB ONE (20:24)
[2022-02-19] MEDS: HEPARIN - 25,000 UNIT in SODIUM CHLORIDE 495 ML IV SCH (20:48)
[2022-02-20 06:18] VITALS: BMI 290.6
[2022-02-20 07:59] LABS: BASO % 1.4 % (0-2.0); EOS % 3.7 % (0-4.5); HEMATOCRIT 38.1 % (32.4-45.2); HEMOGLOBIN 12.3 GM/dL (10.7-15.3); LYMPH % 40.2 % (8-40); MCH 27.7 pg (25.7-33.7); MCHC 32.3 g/dl (32.0-36.0); MEAN CELL VOLUME 85.5 fl (80-96); MEAN PLT VOLUME 8.1 fl (7.5-11.1); MONO % 6.1 % (3.8-10.2); NEUT % 48.6 % (42.8-82.8); PLATELET COUNT 373 10^3/uL (134-434); RBC 4.46 M/mm3 (3.60-5.2); WHITE BLOOD COUNT 7.3 K/mm3 (4.0-10.0)
[2022-02-20 08:26] LABS: CALCIUM 9.1 mg/dL (8.5-10.1)
[2022-02-20 08:28] LABS: BLOOD UREA NITROGEN 8.9 mg/dL (7-18)
[2022-02-20 08:30] LABS: CREATININE 0.4 mg/dL (0.55-1.3)
[2022-02-20] MEDS: HEPARIN - 25,000 UNIT in SODIUM CHLORIDE 495 ML IV SCH ×2 (10:38→18:47)
[2022-02-20] MEDS ORDERED: ACETAMINOPHEN 325 MG TABLET (FP) PO PRN (20:11)
[2022-02-21 09:23] LABS: HEMATOCRIT 37.9 % (32.4-45.2); HEMOGLOBIN 12.7 GM/dL (10.7-15.3); MCH 28.9 pg (25.7-33.7); MCHC 33.5 g/dl (32.0-36.0); MEAN CELL VOLUME 86.1 fl (80-96); MEAN PLT VOLUME 7.7 fl (7.5-11.1); PLATELET COUNT 332 10^3/uL (134-434); WHITE BLOOD COUNT 7.1 K/mm3 (4.0-10.0)
[2022-02-21] MEDS: HEPARIN - 25,000 UNIT in SODIUM CHLORIDE 495 ML IV SCH (18:28)
[2022-02-22 11:31] LABS: HEMATOCRIT 38.5 % (32.4-45.2); HEMOGLOBIN 12.9 GM/dL (10.7-15.3); MCH 28.9 pg (25.7-33.7); MCHC 33.5 g/dl (32.0-36.0); MEAN CELL VOLUME 86.3 fl (80-96); MEAN PLT VOLUME 8.1 fl (7.5-11.1); PLATELET COUNT 359 10^3/uL (134-434); RBC 4.46 M/mm3 (3.60-5.2); RDW 12.8 % (11.6-15.6); WHITE BLOOD COUNT 6.6 K/mm3 (4.0-10.0)
[2022-02-22] MEDS ORDERED: ENOXAPARIN NA (PORCINE) 80 MG/0.8 ML DISP.SYRIN SQ ONE (12:00)
[2022-02-22] MEDS: ENOXAPARIN NA (PORCINE) 80 MG/0.8 ML DISP.SYRIN SQ SCH (21:03)
[2022-02-23 07:53] VITALS: BP 102/48; PULSE 51; TEMP 98.4
[2022-02-23] MEDS: ENOXAPARIN NA (PORCINE) 80 MG/0.8 ML DISP.SYRIN SQ SCH (09:30)
[2022-02-23 10:47] LABS: HEMOGLOBIN 13.1 GM/dL (10.7-15.3); MCH 28.9 pg (25.7-33.7); MCHC 33.7 g/dl (32.0-36.0); MEAN CELL VOLUME 85.9 fl (80-96); MEAN PLT VOLUME 7.9 fl (7.5-11.1); PLATELET COUNT 369 10^3/uL (134-434); RBC 4.54 M/mm3 (3.60-5.2); RDW 12.8 % (11.6-15.6); WHITE BLOOD COUNT 6.5 K/mm3 (4.0-10.0)
== END 2022-02-23 14:31 | disposition home or self-care (01) | DRG 197 ==
LOC: JER 13:33 → JERBED 19:15 → J5S 02-20 00:04
PROVIDERS: ADMIT Internal Medicine; ATTEND Family Medicine
DX: I82.401 Acute embolism and thrombosis of unspecified deep veins of right lower extremity (principal); D68.51 Activated protein C resistance; N83.209 Unspecified ovarian cyst, unspecified side; T45.516A Underdosing of anticoagulants, initial encounter; Z91.128 Patient's intentional underdosing of medication regimen for other reason; Y92.89 Other specified places as the place of occurrence of the external cause
CPT/HCPCS: 36415; 80048; 80053; 82272; 84703; 85025; 85027; 85610; 85730; 86850; 86900; 86901; 93005; 93010; 93971-TC; 99285-25; C9803-CS; J1644; U0003; U0005

== ENCOUNTER 2022-05-21 08:42 | Inpatient (IN) | payer OTHER ==
[2022-05-21] MEDS ORDERED: ACETAMINOPHEN 325 MG TABLET (FP) PO ONE (10:07)
[2022-05-21] MEDS ORDERED: ACETAMINOPHEN 325 MG TABLET (FP) ONE (11:40)
[2022-05-21 11:56] LABS: EOS % 1.2 % (0-4.5); HEMATOCRIT 42.4 % (32.4-45.2); HEMOGLOBIN 13.6 GM/dL (10.7-15.3); LYMPH % 33.9 % (8-40); MCH 27.9 pg (25.7-33.7); MCHC 32.1 g/dl (32.0-36.0); MEAN CELL VOLUME 86.7 fl (80-96); MEAN PLT VOLUME 8.3 fl (7.5-11.1); MONO % 5.2 % (3.8-10.2); NEUT % 58.7 % (42.8-82.8); PLATELET COUNT 364 10^3/uL (134-434); RBC 4.89 M/mm3 (3.60-5.2); WHITE BLOOD COUNT 6.3 K/mm3 (4.0-10.0)
[2022-05-21 12:05] LABS: ACTIVATED PTT 34.9 SECONDS (25.2-36.5); INR 1.03 (0.83-1.09); PROTHROMBIN TIME (PATIENT) 11.8 SEC (9.7-13.0)
[2022-05-21 12:15] LABS: CALCIUM 8.7 mg/dL (8.5-10.1)
[2022-05-21 12:17] LABS: ALBUMIN 3.7 g/dl (3.4-5.0); BLOOD UREA NITROGEN 10.7 mg/dL (7-18)
[2022-05-21 12:19] LABS: CREATININE 0.5 mg/dL (0.55-1.3)
[2022-05-21 12:21] LABS: BILIRUBIN,TOTAL 0.4 mg/dL (0.2-1); TOT PROT 6.5 g/dl (6.4-8.2)
[2022-05-21] MEDS ORDERED: HEPARIN NA (PORCINE) 5,000 UNITS/ML 1ML VIAL IVPUSH ONE (14:09)
[2022-05-21] MEDS ORDERED: HEPARIN NA (PORCINE) 5,000 UNITS/ML 1ML VIAL IVPUSH PRN ×2 (14:09)
[2022-05-21] MEDS ORDERED: HEPARIN NA (PORCINE) 5,000 UNITS/ML 1ML VIAL ONE (14:22)
[2022-05-21] MEDS: HEPARIN INFUSION - 25,000 UNITS/500 ML INFUS.BAG IVPB SCH (14:41)
[2022-05-22 06:11] VITALS: RESP 18
[2022-05-22 07:44] LABS: BLOOD UREA NITROGEN 10.1 mg/dL (7-18)
[2022-05-22 07:47] LABS: CREATININE 0.6 mg/dL (0.55-1.3)
[2022-05-22 08:10] VITALS: BMI 29.0
[2022-05-22] MEDS: HEPARIN INFUSION - 25,000 UNITS/500 ML INFUS.BAG IVPB SCH ×2 (11:33→14:51)
[2022-05-23] MEDS ORDERED: INSULIN (LEVEMIR) 100 UNITS/ML UNITS SQ ONE (07:33)
[2022-05-23 08:31] LABS: HEMOGLOBIN 12.6 GM/dL (10.7-15.3); MCH 27.7 pg (25.7-33.7); MCHC 32.2 g/dl (32.0-36.0); MEAN CELL VOLUME 86.1 fl (80-96); MEAN PLT VOLUME 7.5 fl (7.5-11.1); PLATELET COUNT 328 10^3/uL (134-434); RBC 4.53 M/mm3 (3.60-5.2); RDW 13.2 % (11.6-15.6); WHITE BLOOD COUNT 6.7 K/mm3 (4.0-10.0)
[2022-05-23 08:40] LABS: ACTIVATED PTT 44.9 SECONDS (25.2-36.5)
[2022-05-23 10:53] LABS: INR 1.12 (0.83-1.09); PROTHROMBIN TIME (PATIENT) 12.9 SEC (9.7-13.0)
[2022-05-23] MEDS: POLYETHYLENE GLYCOL (HEALTHYLAX) 3350 17 GM PACKET PO SCH (13:03)
[2022-05-23] MEDS: HEPARIN INFUSION - 25,000 UNITS/500 ML INFUS.BAG IVPB SCH (13:03)
[2022-05-24] MEDS: POLYETHYLENE GLYCOL (HEALTHYLAX) 3350 17 GM PACKET PO SCH (09:29)
[2022-05-24 10:41] LABS: HEMATOCRIT 43.8 % (32.4-45.2); MCH 27.8 pg (25.7-33.7); MCHC 32.1 g/dl (32.0-36.0); MEAN CELL VOLUME 86.5 fl (80-96); MEAN PLT VOLUME 7.9 fl (7.5-11.1); PLATELET COUNT 393 10^3/uL (134-434); RBC 5.06 M/mm3 (3.60-5.2); RDW 12.9 % (11.6-15.6); WHITE BLOOD COUNT 7.9 K/mm3 (4.0-10.0)
[2022-05-24 12:11] VITALS: TEMP 98.2
[2022-05-24 14:44] VITALS: BP 145/84; PULSE 70
== END 2022-05-24 17:46 | disposition home or self-care (01) | DRG 197 ==
LOC: JER 08:42 → JERBED 15:43 → J6S 05-22 06:52
PROVIDERS: ADMIT Internal Medicine; ATTEND Internal Medicine
DX: I82.411 Acute embolism and thrombosis of right femoral vein (principal); D68.51 Activated protein C resistance; R42 Dizziness and giddiness
CPT/HCPCS: 0241U-QW; 36415; 71045-TC-FY; 71275-TC; 80048; 80053; 82272; 84484; 84703; 85025; 85027; 85379; 85520; 85610; 85613; 85730; 85732; 93005; 93010; 93971-TC; 99285-25; J1644

== ENCOUNTER 2024-01-23 18:40 | Emergency (ER) | payer OTHER ==
[2024-01-23 18:47] VITALS: BP 125/69; PULSE 56; RESP 20; TEMP 98.4; BMI 31.8
[2024-01-23 20:49] LABS: BASO % 0.9 % (0-2.0); EOS % 1.2 % (0-4.5); HEMATOCRIT 36.5 % (32.4-45.2); HEMOGLOBIN 12.2 GM/dL (10.7-15.3); LYMPH % 24.8 % (8-40); MCHC 33.5 g/dl (32.0-36.0); MEAN CELL VOLUME 83.5 fl (80-96); MEAN PLT VOLUME 7.9 fl (7.5-11.1); MONO % 5.8 % (3.8-10.2); NEUT % 67.3 % (42.8-82.8); PLATELET COUNT 384 10^3/uL (134-434); RBC 4.37 M/mm3 (3.60-5.2); RDW 13.7 % (11.6-15.6); WHITE BLOOD COUNT 10.8 K/mm3 (4.0-10.0)
[2024-01-23 21:15] LABS: POTASSIUM 4.1 mmol/L (3.5-5.1)
[2024-01-23 21:17] LABS: ALBUMIN 4.2 g/dl (3.4-5.0)
[2024-01-23 21:18] LABS: BLOOD UREA NITROGEN 19.7 mg/dL (7-18)
[2024-01-23 21:21] LABS: CREATININE 0.7 mg/dL (0.55-1.3)
[2024-01-23 21:22] LABS: BILIRUBIN,TOTAL 0.5 mg/dL (0.2-1); TOT PROT 7.3 g/dl (6.4-8.2)
[2024-01-23 21:43] LABS: INR 1.08 (0.83-1.09); PROTHROMBIN TIME (PATIENT) 12.4 SEC (9.7-13.0)
[2024-01-23 22:11] LABS: HIV INTERPRETATION NEGATIVE (NEGATIVE)
== END 2024-01-23 23:28 | disposition home or self-care (01) ==
LOC: JER 18:40
DX: R07.9 Chest pain, unspecified (principal); M62.81 Muscle weakness (generalized); R42 Dizziness and giddiness; M79.661 Pain in right lower leg
CPT/HCPCS: 36415; 71046-TC-FY; 71275-TC; 80053; 82550; 84484; 84703; 85025; 85610; 86803; 86850; 86900; 86901; 87389; 93005; 93010; 93971; 93971-TC; 99285-25; Q9967